=== PATIENT | male | born 1930 | race Two or more races ===

== ENCOUNTER 2020-07-15 01:29 | Inpatient (IN) | payer MEDICARE, OTHER ==
[~2020-07-15] VITALS: Ht 167.6 cm; Wt 84.2 kg
[2020-07-15] VITALS (27 sets, daily range): BP systolic 58–151; BP diastolic 38–117
[~2020-07-15 01:29] MED LIST: AMLO5TAB15 PO; ASPI-543 PO; ATOR20TA50 PO; ENAL2.5T7 PO; FURO1TAB33 PO; INSU70IN3 SC; POTA8TAB2 PO; TAMS0.4C36 PO
[2020-07-15] MEDS ORDERED: methylPREDNISolone SOD SUCC 125 MG/2 ML VL ONE (01:42)
[2020-07-15] MEDS ORDERED: ALBUTEROL SULF 2.5 MG/0.5ML(0.5%) NEB SOLN ONE (01:43)
[2020-07-15] MEDS ORDERED: IPRATROPIUM BROM 0.5 MG/2.5ML INH SOL ONE (01:44)
[2020-07-15] MEDS ORDERED: ALBUTEROL SULF 2.5 MG/0.5ML(0.5%) NEB SOLN NEB ONE (01:45)
[2020-07-15] MEDS ORDERED: methylPREDNISolone SOD SUCC 125 MG/2 ML VL IV ONE (01:45)
[2020-07-15] MEDS ORDERED: IPRATROPIUM BROM 0.5 MG/2.5ML INH SOL NEB ONE (01:45)
[2020-07-15 02:11] LABS: Basophils # (auto) 0.1 10 ^3/uL (0-0.2); Basophils % (auto) 0.6 % (0.0-2.0); Eosinophils # (auto) 0.2 10 ^3/uL (0-0.8); Eosinophils % (auto) 2.2 % (0.0-7.0); Hematocrit 36.7 % (41.0-53.0); Hemoglobin 12.4 g/dL (13.5-17.5); Lymphocytes # (auto) 2.4 10 ^3/uL (0.4-5.4); Lymphocytes % (auto) 24.4 % (10.0-50.0); Mean Corpuscular Hemoglobin 30.6 pg (28.0-32.0); Mean Corpuscular Hgb Conc. 33.7 g/dL (32.0-36.0); Mean Corpuscular Volume 90.8 fL (80.0-100.0); Monocytes # (auto) 0.5 10 ^3/uL (0-1.3); Monocytes % (auto) 5.2 % (0.0-12.0); Neutrophils # (auto) 6.5 10 ^3/uL (1.6-8.6); Neutrophils % (auto) 67.6 % (37.0-80.0); Nucleated Red Blood Cells % 0.1 %; Platelet Count (auto) 173 10^3/uL (140-450); Red Blood Cells 4.04 10^6/uL (4.5-5.90); Red Cell Distribution Width 14.2 % (11.8-14.3); White Blood Cell 9.7 10^3/uL (4.4-10.8)
[2020-07-15 02:28] LABS: Albumin 3.6 g/dL (3.4-5.0); BUN/Creatinine Ratio 15.8; INR 0.95 (0.9-1.15); Partial Thromboplastin Time 24.2 sec (23.0-31.2); Potassium 3.7 mmol/L (3.5-5.1)
[2020-07-15 02:30] LABS: Lactic Acid w/Reflex 2.6 mmol/L (0.4-2.0)
[2020-07-15 02:32] LABS: Bilirubin, Total 0.4 mg/dL (0.2-1.0); Total Protein 6.8 g/dL (6.4-8.2)
[2020-07-15] MEDS ORDERED: METO25TA93 PO (02:37)
[2020-07-15] MEDS ORDERED: MORPHINE SULFATE 4 MG/ML SYR/VIAL IV ONE (02:45)
[2020-07-15] MEDS ORDERED: HEPARIN SODIUM (PORCINE) 5000 UNITS/ML 1ML VIAL IV ONE (02:45)
[2020-07-15] MEDS ORDERED: ONDANSETRON HCL 4 MG/2 ML VIAL IV ONE (02:45)
[2020-07-15] MEDS ORDERED: HEPARIN DRIP/D5W 100UNITS/ML 250 ML IV SCH (02:45)
[2020-07-15] MEDS ORDERED: ASPirin 81 mg TAB PO ONE (02:45)
[2020-07-15] MEDS ORDERED: ATORVASTATIN 20 MG TAB PO ONE (02:45)
[2020-07-15] MEDS ORDERED: NITROGLYCERIN 2% OINT 1GM PKG TD ONE (02:45)
[2020-07-15] MEDS ORDERED: METOPROLOL TARTRATE 25 MG TAB PO ONE (02:45)
[2020-07-15] MEDS ORDERED: HEPARIN SODIUM (PORCINE) 5000 UNITS/ML 1ML VIAL ONE (03:06)
[2020-07-15] MEDS ORDERED: PIO30T PO (06:55)
[2020-07-15] MEDS ORDERED: GLIP5TAB12 PO (06:55)
[2020-07-15] MEDS ORDERED: DEXTROSE (50%) 50ML SYRG IV PRN (07:15)
[2020-07-15] MEDS ORDERED: ONDANSETRON HCL 4 MG/2 ML VIAL IV PRN (07:15)
[2020-07-15] MEDS ORDERED: NITROGLYCERIN 0.4 MG SL TAB SL PRN ×2 (07:15→14:15)
[2020-07-15] MEDS ORDERED: MORPHINE SULF INJ 2 MG/ML SYRINGE 1ML IV PRN (07:15)
[2020-07-15 09:49] LABS: INR 0.99 (0.9-1.15)
[2020-07-15 09:53] LABS: Partial Thromboplastin Time 92.4 sec (23.0-31.2)
[2020-07-15] MEDS: SODIUM CHLORIDE 0.9% 1,000 ML IV SCH (11:45)
[2020-07-15] MEDS ORDERED: PIOG15TA38 PO (11:45)
[2020-07-15] MEDS ORDERED: CHOL20007 PO (11:45)
[2020-07-15] MEDS ORDERED: AMLO-483 PO (11:45)
[2020-07-15] MEDS: PANTOPRAZOLE 40 MG TAB PO SCH (12:02)
[2020-07-15] MEDS: ASPirin 81 mg TAB PO SCH (12:09)
[2020-07-15] MEDS: levoFLOXacin 250MG 50 ML IV SCH (12:09)
[2020-07-15] MEDS ORDERED: FUROSEMIDE 40 MG/4 ML VIAL IV ONE (12:30)
[2020-07-15] MEDS ORDERED: LIDOCAINE 2%HCL (LOCAL ANESTH.) INJ 20ML MDV ONE (13:21)
[2020-07-15] MEDS ORDERED: ANGIOMAX 250 MG VIAL IV ONE (13:21)
[2020-07-15] MEDS ORDERED: SODIUM CHL 0.9% 50 ML ONE (13:21)
[2020-07-15] MEDS ORDERED: FUROSEMIDE 20 MG/2 ML VIAL ONE ×2 (13:21→13:22)
[2020-07-15] MEDS ORDERED: IOHEXOL 350 MG/ML 100ML IJ ONE (13:22)
[2020-07-15] MEDS ORDERED: MIDAZOLAM HCL 1MG/1ML-2 ML VIAL ONE (13:29)
[2020-07-15] MEDS ORDERED: fentaNYL CITRATE 100 MCG/2 ML VL ONE (13:29)
[2020-07-15] MEDS ORDERED: IODIXANOL 320MG/ML 100ML BTL IV ONE (13:39)
[2020-07-15 13:41] LABS: Urine Amorphous Crystal MOD /hpf (None Seen); Urine Bacteria NONE SEEN /hpf (None Seen); Urine Blood 2+ /uL (Negative); Urine Hyaline Cast FEW /lpf (0 - 2); Urine Mucus FEW (None Seen); Urine Specific Gravity 1.022 (1.001-1.035); Urine WBC 2 /hpf (0 - 3)
[2020-07-15] MEDS ORDERED: SODIUM BICARBONATE 8.4 % INJ 50ML VIAL IV ONE ×3 (13:43→17:45)
[2020-07-15] MEDS ORDERED: CLOPIDOGREL 300 MG TAB ONE (14:00)
[2020-07-15] MEDS: NOREPINEPHRINE 8 MG/250ML KIT 250 ML IV SCH (14:15)
[2020-07-15] MEDS ORDERED: NOREPINEPHRINE 8 MG/250ML KIT 250 ML IV ONE (14:24)
[2020-07-15] MEDS: ACCU-CHEK COMFORT CURVE STRIP VI SCH ×3 (14:39→23:47)
--- NOTE | 2020-07-15 14:41 | NUR ---
Respiratory note: CALLED DR NIELSON IN REGARD TO ABG RESULTS. PAGED AND GIVEN RESPIRATORY EXTENSION NUMBER
[2020-07-15] MEDS: InsuLIN REG 1unit/0.01ml Soln (100units/ml) SC SCH ×3 (14:56→23:47)
--- NOTE | 2020-07-15 15:45 | NUR ---
Dr. Vazquez notified re: ABG results, order received to notify hospitalist to manage pt. for probable placement on ventilator. Favio Harvey NP notified, orders received.
[2020-07-15] MEDS: SODIUM BICARBONATE 8.4% INJ 50ML SYRINGE ONE ×2 (16:07→16:13)
--- NOTE | 2020-07-15 17:25 | NUR ---
ICU pt S/P Cardiac Cath Report received from ANEUDY PORTILLO brought to bed 103 following Cardiac catheterization, on bus monitor and portable oxygen. Patient transferred to ICU bed, connected to ICU monitoring and oxygen (BIPAP). Site assessed for any bleeding, redness or swelling. Pedal pulses on affected leg assessed for positive tissue perfusion. Patient instructed on need to notify staff immediately if any pain, burning or wetness to site, and any lower back pain. All questions and concerns addressed, patient verbalized understanding of all education and instruction. See notes for any further. 18G TO RIGHT HAND AND LEFT AC SALINE LOCKED AT THIS TIME. PATIENT DENIES PAIN AT THIS TIME, REPOSITIONED FOR COMFORT
[2020-07-15] MEDS ORDERED: SODIUM BICARBONATE 8.4% INJ 50ML SYRINGE ONE (17:41)
--- NOTE | 2020-07-15 18:30 | NUR ---
SPOKE WITH PATIENTS CHARLENE PROVIDED PASSWORD. ASKED MORE INFORMATION REGARDING PATIENTS HEALTH HISTORY AND UPDATED CHART. ANSWERED CONCERNS
--- NOTE | 2020-07-15 18:55 | NUR ---
SPOKE WITH HOSPITALIST RECEIVED NEW ORDERS AND IMPLEMENTED
--- NOTE | 2020-07-15 19:00 | NUR ---
Opening Shift Note Assumed care of patient, awake and alert. No S/S of distress/SOB or pain. Instructed on POC and to call for assist PRN, will continue to monitor for changes Q1hr and PRN. Patient remains on Bi-pap at this time.
--- NOTE | 2020-07-15 19:30 | NUR ---
BM: Patient placed on a bedpan. Patient had a small BM. Aiyana care provided. Patient tolerated intervention well with no s/s of discomfort or distress.
--- NOTE | 2020-07-15 19:45 | NUR ---
Family: RN received call from family, password verified. Family was updated on patient condition and POC. Family is pleased with medical staff communication and care so far and are very thankful at this time.
[2020-07-15] MEDS: FUROSEMIDE INJECTION 100 MG in SODIUM CHL 0.9% 100 ML IV SCH (20:04)
[2020-07-15] MEDS: DOPamine 1600MCG/ML D5W 250 ML IV SCH (21:15)
--- NOTE | 2020-07-15 21:15 | NUR ---
Dopamine drip: RN started dopamine drip d/t patients blood pressure trending down and MAP falling below 65.
[2020-07-15] MEDS: ATORVASTATIN 20 MG TAB PO SCH (21:19)
[2020-07-16] VITALS (99 sets, daily range): BP systolic 65–132; BP diastolic 51–84
--- NOTE | 2020-07-16 | NUR ---
REPORT RECEIVED REPORT FROM STEPHEN PIZARRO. PATIENT IS AWAKE ALERT AND ORIENTED. FOLLOWS COMMANDS. ON BIPAP 12/5 70% SATURATING 90-94%. EKG SHOWS SR WITH BBB. PATIENT IS ON LASIX DRIP 10 MG/HR , DOPAMINE 2 MCG/KG/MIN AND NS IS ON HOLD. PER RN, IT IS DUE TO CHF AND OLIGURIA. SKIN IS INTACT.
--- NOTE | 2020-07-16 | NUR ---
Report given to JUAREZ Mccann. Care transferred to Siobhan.
[2020-07-16] MEDS: SODIUM CHLORIDE 0.9% 1,000 ML IV SCH (01:05)
--- NOTE | 2020-07-16 04:00 | NUR ---
ASSESSMENT PATIENT STILL ON BIPAP 12/5 AND FIO2 70%. PER PATIENT, HE FEELS BETTER.
[2020-07-16 04:31] LABS: Basophils # (auto) 0 10 ^3/uL (0-0.2); Basophils % (auto) 0.1 % (0.0-2.0); Eosinophils # (auto) 0 10 ^3/uL (0-0.8); Hematocrit 38.4 % (41.0-53.0); Hemoglobin 12.5 g/dL (13.5-17.5); Lymphocytes # (auto) 1.3 10 ^3/uL (0.4-5.4); Lymphocytes % (auto) 9.3 % (10.0-50.0); Mean Corpuscular Hemoglobin 29.8 pg (28.0-32.0); Mean Corpuscular Hgb Conc. 32.6 g/dL (32.0-36.0); Mean Corpuscular Volume 91.3 fL (80.0-100.0); Monocytes # (auto) 0.8 10 ^3/uL (0-1.3); Monocytes % (auto) 5.9 % (0.0-12.0); Neutrophils # (auto) 11.9 10 ^3/uL (1.6-8.6); Neutrophils % (auto) 84.7 % (37.0-80.0); Platelet Count (auto) 164 10^3/uL (140-450); Red Cell Distribution Width 14.7 % (11.8-14.3)
[2020-07-16] MEDS: FUROSEMIDE INJECTION 100 MG in SODIUM CHL 0.9% 100 ML IV SCH ×3 (04:48→18:54)
[2020-07-16 04:52] LABS: INR 1.05 (0.9-1.15); Potassium 4.8 mmol/L (3.5-5.1)
[2020-07-16 05:01] LABS: Albumin 3.1 g/dL (3.4-5.0); BUN/Creatinine Ratio 13.6; Bilirubin, Total 0.5 mg/dL (0.2-1.0); Calcium 8.6 mg/dL (8.5-10.1); Total Protein 6.2 g/dL (6.4-8.2)
--- NOTE | 2020-07-16 06:00 | NUR ---
FAMILY RECEIVED PHONE CALL FROM PATIENT'S GRANDDAUGHTER. PASSWORD CONFIRMED. UPDATES GIVEN. PATIENT TALKED TO AND GRANDDAUGHTER.
[2020-07-16] MEDS: InsuLIN REG 1unit/0.01ml Soln (100units/ml) SC SCH ×3 (06:26→18:00)
[2020-07-16] MEDS: ACCU-CHEK COMFORT CURVE STRIP VI SCH ×3 (06:27→18:00)
[2020-07-16] MEDS: ASPirin 81 mg TAB PO SCH (09:30)
[2020-07-16] MEDS: CLOPIDOGREL BISULFATE 75 MG TAB PO SCH (09:30)
[2020-07-16] MEDS: PANTOPRAZOLE 40 MG TAB PO SCH (09:31)
[2020-07-16] MEDS: levoFLOXacin 250MG 50 ML IV SCH (09:31)
[2020-07-16] MEDS: DOPamine 1600MCG/ML D5W 250 ML IV SCH (09:56)
[2020-07-16] MEDS ORDERED: CLOPIDOGREL BISULFATE 75 MG TAB PO ONE (10:00)
[2020-07-16] MEDS ORDERED: MEROPENEM 500MG IVPB 50 ML IV ONE (10:30)
[2020-07-16] MEDS ORDERED: SODIUM CHL 0.9% 1000 ML BAG XX ONE (11:45)
[2020-07-16] MEDS ORDERED: HEPARIN SODIUM (PORCINE) 5000 UNITS/ML 1ML VIAL ONE (12:14)
[2020-07-16] MEDS: NOREPINEPHRINE 8 MG/250ML KIT 250 ML IV SCH (14:15)
[2020-07-16] MEDS: LINEZOLID 600MG/300ML 300 ML IV SCH (14:19)
--- NOTE | 2020-07-16 14:32 | NUR ---
UPPER AND BOTTOM LACER HAND AT BEDSIDE PT RESTING IN BED. CONNECTED TO BIPAP. NO REPORT OF PAIN FROM PT. EDUCATED AND AWARE OF POC.
[2020-07-16 16:48] LABS: Hepatitis A Ab IgM Negative; Hepatitis B Core IgM Negative; Hepatitis B Surface Antigen Negative (Negative)
[2020-07-16 16:49] LABS: Hepatitis C Antibody Negative (Negative)
[2020-07-16] MEDS: ATORVASTATIN 20 MG TAB PO SCH (22:00)
[2020-07-16] MEDS: MEROPENEM 500MG IVPB 50 ML IV SCH (22:00)
[2020-07-16] MEDS: MORPHINE SULF INJ 2 MG/ML SYRINGE 1ML IV PRN (22:43)
[2020-07-17] VITALS (88 sets, daily range): BP systolic 13–141; BP diastolic 46–86
[2020-07-17] MEDS: LINEZOLID 600MG/300ML 300 ML IV SCH ×2 (01:31→14:16)
[2020-07-17 04:52] LABS: Albumin 2.6 g/dL (3.4-5.0); Calcium 8.8 mg/dL (8.5-10.1); Magnesium 2.2 mg/dL (1.6-2.6); Potassium 4.2 mmol/L (3.5-5.1)
[2020-07-17 04:56] LABS: BUN/Creatinine Ratio 12.5; Bilirubin, Total 0.7 mg/dL (0.2-1.0); Phosphorus 4.7 mg/dL (2.5-4.90); Total Protein 5.9 g/dL (6.4-8.2)
--- NOTE | 2020-07-17 05:43 | NUR ---
UNEVENTFUL SHIFT, IV SITES OOZING DUE TO SIGNIFICANT EDEMA, SEVERAL ATTEMPTS UNSUCCESSFUL,PT IS A VERY DIFFICULT STICK, A SECOND RN ASKED TO ATTEMPT, ONE 22GA PLACED ON LT WRIST.
[2020-07-17] MEDS: ACCU-CHEK COMFORT CURVE STRIP VI SCH ×4 (06:00→17:38)
[2020-07-17] MEDS: DOPamine 1600MCG/ML D5W 250 ML IV SCH ×2 (06:30→06:53)
[2020-07-17] MEDS: FUROSEMIDE INJECTION 100 MG in SODIUM CHL 0.9% 100 ML IV SCH (06:30)
[2020-07-17] MEDS: InsuLIN REG 1unit/0.01ml Soln (100units/ml) SC SCH ×4 (06:40→17:43)
[2020-07-17 07:40] LABS: Basophils # (auto) 0 10 ^3/uL (0-0.2); Basophils % (auto) 0.2 % (0.0-2.0); Eosinophils # (auto) 0 10 ^3/uL (0-0.8); Hematocrit 34.8 % (41.0-53.0); Hemoglobin 11.5 g/dL (13.5-17.5); Lymphocytes # (auto) 0.8 10 ^3/uL (0.4-5.4); Lymphocytes % (auto) 5.2 % (10.0-50.0); Mean Corpuscular Volume 90.9 fL (80.0-100.0); Monocytes # (auto) 0.6 10 ^3/uL (0-1.3); Monocytes % (auto) 4.1 % (0.0-12.0); Neutrophils # (auto) 13.3 10 ^3/uL (1.6-8.6); Neutrophils % (auto) 90.5 % (37.0-80.0); Platelet Count (auto) 143 10^3/uL (140-450); Red Blood Cells 3.83 10^6/uL (4.5-5.90); Red Cell Distribution Width 14.6 % (11.8-14.3); White Blood Cell 14.7 10^3/uL (4.4-10.8)
--- NOTE | 2020-07-17 08:00 | NUR ---
OPEN RECEIVED REPORT FROM NIGHT RN. ASSUMED CARE OF ICU PATIENT, FULL CODE STATUS. PATIENT A & O X4, CALM AND FOLLOWS COMMANDS. NO PAIN AT THIS TIME. PATIENT ON BIPAP AT 80 % FIO2, 09/12. MORE TO GRAVITY. PATIENT NOT HUNGRY AT THIS TIME. RECEIVED ORDERS FROM DR. Juan KILLIAN AT THIS TIME. UPDATED MD ON PT'S CURRENT STATUS AND POC. SEE VISUAL MANAGER AND IV FLOW SHEET FOR FURTHER PATIENT INFORMATION. CONTINUE CARE.
[2020-07-17] MEDS: PANTOPRAZOLE 40 MG TAB PO SCH (08:05)
[2020-07-17] MEDS: ALPRAZolam 0.5 MG TAB PO PRN ×2 (08:05→22:36)
[2020-07-17] MEDS: CLOPIDOGREL BISULFATE 75 MG TAB PO SCH (08:05)
[2020-07-17] MEDS: ASPirin 81 mg TAB PO SCH (08:05)
--- NOTE | 2020-07-17 08:20 | NUR ---
FAMILY CALLED: UPDATE TALKED WITH FAMILY OVER THE PHONE AT THIS TIME. UPDATED THEM ON PT'S CURRENT STATUS, V/S AND LABS FOR TODAY. FAMILY TO CALL BACK LATER ON TODAY. WILL CONTINUE TO MONITOR.
--- NOTE | 2020-07-17 09:35 | NUR ---
PAGED DR. CASILLAS: RESPIRATORY DISTRESS TALKED WITH MD. UPDATED HER ON PT'S CURRENT STATUS, LABS AND CURRENT V/S . ORDERS FOR STAT ABG. FIO2 ON BIPAP INCREASED UP TO 100%, 09/12. R.T. NOTIFIED. WILL CONTINUE TO MONITOR. CURRENT V/S HR 140 ST, BP 133/85. ORDERS GIVEN TO DC DOPAMINE GTT AT THIS TIME. ALSO RECEIVED CALL FROM HD RN. SHE WILL BE HERE WITHIN THE HOUR. WILL CONTINUE CARE.
--- NOTE | 2020-07-17 09:47 | NUR ---
DR. MANCERA AT BEDSIDE: UPDATE UPDATED MD ON PT'S CURRENT STATUS, LABS AND POC FOR TODAY. WILL CONTINUE TO MONITOR, NO NEW ORDERS GIVEN.
[2020-07-17] MEDS: MEROPENEM 500MG IVPB 50 ML IV SCH ×2 (10:00→22:35)
--- NOTE | 2020-07-17 10:10 | NUR ---
HD STARTED AT THIS TIME HD RN AT BEDSIDE. UPDATED ON PT'S STATUS. CURRENT V/S HR 120, RR30, SATS 97%. BP 119/77. WILL CONTINUE TO MONITOR.
--- NOTE | 2020-07-17 10:50 | NUR ---
DR. MOODY AT BEDSIDE: UPDATE MD UPDATED ON PT'S CURRENT STATUS, LABS AND TRENDING V/S FOR TODAY. MD TALKING WITH HD RN AT THIS TIME. HD CONTINUES. WILL CONTINUE TO MONITOR.
[2020-07-17] MEDS: NOREPINEPHRINE 8 MG/250ML KIT 250 ML IV SCH (12:02)
--- NOTE | 2020-07-17 12:45 | NUR ---
DR. CASILLAS AT BEDSIDE: UPDATE MD UPDATED ON PT'S STATUS AT THIS TIME. PATIENT CONTINUES ON HD AT THIS TIME. ORDERS FOR R.T. TO DECREASE FIO2 ON BIPAP TOLERATED. ABG RESULTS GIVEN TO MD. NO NEW ORDERS GIVEN. CONTINUE CARE.
--- NOTE | 2020-07-17 14:29 | NUR ---
OXYGENATION R.T. DECREASED FIO2 ON BIPAP TO 90 % AT THIS TIME. CURRENTLY O2 SATS 95%. WILL CONTINUE TO MONITOR.
--- NOTE | 2020-07-17 14:50 | NUR ---
Midline Placement: Patient educated on need for midline placement. All risks and benefits explained and all questions and concerns addresses prior to procedure. 18g/10cm midline inserted via right basilic vein using Ultrasound. Sterile technique utilized. Blood return obtained from the single lumen and flushed easily with NS using proper technique. Midline secured with saline lock; biodisc and occlusive dressing applied. Primary RN notified. Midline lot # [id number]
--- NOTE | 2020-07-17 15:24 | NUR ---
FAMILY CALLED: UPDATE TALKED WITH PATIENT'S GRANDDAUGHTER AT THIS TIME. UPDATED HER ABOUT PATIENT TOLERATING HD TODAY AND CURRENT STATUS AT THIS TIME. WILL CONTINUE CARE.
--- NOTE | 2020-07-17 20:00 | NUR ---
OPEN ASSUMED CARE OF MALE PT FATIGUED. PT WAKES TO NAME BEING CALLED. A&O X 3. ABLE TO FOLLOW COMMANDS. ABLE TO ASK APPROPRIATE QUESTIONS. PT ON BIPAP MASK 09/12 85% FIO2. SINUS TACH ON RETAIL AIDE WITH BBB. R. IJ H.D. CATH IN PLACE WITH CDI DRESSING. FLACO MIDLINE IN PLACE PATENT WITH CDI DRESSING. 22 G S/L TO L. HAND B&P WITH CDI DRESSING. MORE TO GRAVITY DRAINING CLEAR YELLOW URINE. ANITA LOWER EXT'S WITH PITTING EDEMA 2 +. NO SKIN BREAKDOWN OBSERVED. PILLOWS USED TO OFFLOAD BONY PROMINENCES AND ANITA HEELS. PT DENIES PAIN. BED IN LOWEST LOCKED POSITION. SIDE RAILS UP X 2. CALL BYRD IN REACH. PT IN FULL VIEW OF RN STATION. WILL CONTINUE TO MONITOR.
--- NOTE | 2020-07-17 20:15 | NUR ---
FAMILY CALL PT GRAND DAUGHTER CALLED UNIT FOR UPDATE ON PT CONDITION. AFTER PASSWORD FOR PHONE GIVEN. UPDATE PROVIDED. ALL QUESTIONS AND CONCERNS ADDRESSED. PLAN OF CARE DISCUSSED.
--- NOTE | 2020-07-17 22:00 | NUR ---
PO MEDS/HYDRATION PT ABLE TO TAKE PO MEDS WITH WATER WITH NO S/S OF ASPIRATION. BIPAP MASK RE-SECURED.
[2020-07-17] MEDS: ATORVASTATIN 20 MG TAB PO SCH (22:36)
[2020-07-18] VITALS (33 sets, daily range): BP systolic 96–128; BP diastolic 52–82
--- NOTE | 2020-07-18 | NUR ---
GI/BED BATH LINEN CHANGE PT ABLE TO USE CALL BYRD TO ASK FOR BEDPAN. PT HAD SMALL BROWN BM. PT CLEANED. NEW LINENS PROVIDED. NEW OPTIFOAM GENTLE SACRAL DRESSING APPLIED TO INTACT SKIN PREVENTATIVE. PT GIVEN BED BATH WITH CHLORHEXIDINE WIPES. REPOSITIONED PT WITH PILLOWS USED TO OFFLOAD BONY PROMINENCES AND ANITA HEELS.
[2020-07-18] MEDS: ACCU-CHEK COMFORT CURVE STRIP VI SCH ×4 (00:20→18:19)
--- NOTE | 2020-07-18 00:20 | NUR ---
HYDRATION PT REQUEST WATER. PT ABLE TO DRINK WATER WITH NO S/S OF ASPIRATION. BIPAP MASK RE-SECURED.
[2020-07-18] MEDS: InsuLIN REG 1unit/0.01ml Soln (100units/ml) SC SCH ×4 (00:21→18:21)
--- NOTE | 2020-07-18 01:00 | NUR ---
REST PT SLEEPING. TOLERATING BIPAP. WILL CONTINUE TO MONITOR.
[2020-07-18] MEDS: LINEZOLID 600MG/300ML 300 ML IV SCH (01:56)
[2020-07-18 04:29] LABS: Basophils # (auto) 0 10 ^3/uL (0-0.2); Basophils % (auto) 0.1 % (0.0-2.0); Eosinophils # (auto) 0 10 ^3/uL (0-0.8); Hematocrit 31.1 % (41.0-53.0); Hemoglobin 10.5 g/dL (13.5-17.5); Lymphocytes # (auto) 1.2 10 ^3/uL (0.4-5.4); Mean Corpuscular Hgb Conc. 33.8 g/dL (32.0-36.0); Mean Corpuscular Volume 91.7 fL (80.0-100.0); Monocytes # (auto) 0.5 10 ^3/uL (0-1.3); Neutrophils # (auto) 8.8 10 ^3/uL (1.6-8.6); Neutrophils % (auto) 83.9 % (37.0-80.0); Platelet Count (auto) 98 10^3/uL (140-450); Red Blood Cells 3.39 10^6/uL (4.5-5.90); Red Cell Distribution Width 14.4 % (11.8-14.3); White Blood Cell 10.5 10^3/uL (4.4-10.8)
[2020-07-18 04:49] LABS: Albumin 2.5 g/dL (3.4-5.0); Calcium 8.7 mg/dL (8.5-10.1); Potassium 4.2 mmol/L (3.5-5.1)
[2020-07-18 04:51] LABS: BUN/Creatinine Ratio 11.7
[2020-07-18 05:03] LABS: Total Protein 5.7 g/dL (6.4-8.2)
--- NOTE | 2020-07-18 06:21 | NUR ---
FAMILY CALL PT FAMILY CALLED FOR UPDATE ON PT CONDITION. AFTER PASSWORD FOR PHONE GIVEN. UPDATE PROVIDED.
--- NOTE | 2020-07-18 06:40 | NUR ---
HYDRATION PT USED CALL BYRD TO ASK FOR A DRINK OF WATER. PT ABLE TO DRINK WITH NO S/S OF ASPIRATION. PT PLACED BACK ON BIPAP MASK. CALL BYRD IN REACH.
--- NOTE | 2020-07-18 08:00 | NUR ---
Opening Shift Note Assumed care of patient, awake and alert. No S/S of distress/SOB or pain. See interventions for complete assessment. Bed locked on low position, side rails up x2, bed alarms on at all times, call mejia within reach, instructed on POC and to call for assist PRN, will continue to monitor for changes Q1hr and PRN.
[2020-07-18] MEDS: PANTOPRAZOLE 40 MG TAB PO SCH (09:58)
[2020-07-18] MEDS ORDERED: MEROPENEM 500MG IVPB 50 ML IV SCH (10:00)
--- NOTE | 2020-07-18 10:23 | NUR ---
Nutrition Assessment Est energy needs 7560-0599 kcal (18-20 kcal/kg BW 88kg) Est protein needs 88-106g (1-1.2g/kg BW 88kg r/t VALERIA with HD) Will reassess prn. Addendum: 07/18/20 at [address] Amended: Links added.
[2020-07-18] MEDS: MEROPENEM 500MG IVPB 50 ML IV SCH (11:13)
--- NOTE | 2020-07-18 12:07 | NUR ---
Dr Das at bedside, updated on patient's status. Patient seen and examined. Will carry out new orders.
--- NOTE | 2020-07-18 12:08 | NUR ---
Dr Pratt at bedside, updated on patient's status. Patient seen and examined. Will carry out new orders.
[2020-07-18] MEDS: CLOPIDOGREL BISULFATE 75 MG TAB PO SCH (12:26)
[2020-07-18] MEDS: ASPirin 81 mg TAB PO SCH (12:27)
--- NOTE | 2020-07-18 12:28 | NUR ---
Dr Dugan at bedside, updated on patient's status. Patient seen and examined. Patient's platelet 98, may go ahead and give Aspirin and Plavix per MD. Will carry out new orders.
--- NOTE | 2020-07-18 13:50 | NUR ---
SPOKE WITH THE PATIENTS FAMILY OVER THE PHONE. UPDATED THEM ON PATIENT STATUS AND PLAN OF CARE. TRANSFERRED PHONE CALL TO MOBILE PHONE AND LET FAMILY SPEAK TO PATIENT OVER THE PHONE. Signed: 07/18/20 at 1454 by HERRERA KEARNS <Co-Signature Required> Co-Signed: 07/18/20 at 1454 by Chantelle Gunderson RN
--- NOTE | 2020-07-18 14:00 | NUR ---
Respiratory note: PT SWITCHED TP HFNC. 40LPM AND FI002 55% PT TOLERATING WELL.
--- NOTE | 2020-07-18 14:10 | NUR ---
Patient switch to [place] oxygen 40 LPM, 55% FIO2. Saturation 92% to 94%. Will continue to monitor. Patient eating lunch at this time.
[2020-07-18] MEDS: NOREPINEPHRINE 8 MG/250ML KIT 250 ML IV SCH (14:15)
[2020-07-18] MEDS: DOXYCYCLINE 100MG/250ML 250 ML IV SCH (14:24)
[2020-07-18] MEDS ORDERED: BUMETANIDE 2.5mg/10ml (0.25 mg/ml) INJ IV ONE ×2 (16:45→18:30)
--- NOTE | 2020-07-18 18:33 | NUR ---
RT NOTE PT TOLERATING HFNC AT THIS TIME. PT REQUESTED TO SWITCH TO BIPAP BECAUSE \THEIR NOSE WAS FEELING DRY. RT INCREASED THE HUMIDITY AND ASKED PT TO SEE IF IT FEELS BETTER IN ABOUT 30MINS. RT TOLD PT IF HE STILL WANTED TO GO TO BIPAP HE COULD IN 30MINS IF HIS NOSE DIDN'T FEEL ANY BETTER. RT EXPLAINED THE BENEFIT OF HFNC TO BIPAP. BEING THAT THE PT WILL GET STRONGER WITH LESS SUPPORT FROM THE HFNC.
--- NOTE | 2020-07-18 19:30 | NUR ---
Opening notes Assumed care, awake and oriented with no signs of distress, on high flow nasal cannula, midline access patent and intact, mcclain catheter draining to a light paulo urine, oliguria noted, right IJ bry catheter patent and intact, bed in lowest position with side rails up, bed alarm on. Will continue care.
--- NOTE | 2020-07-18 20:25 | NUR ---
RT NOTE PT PLACED ON BIPAP AT THIS TIME. PT COMPLAINT OF NOSE BEING TOO DRY. PT TOLERATING HFNC WELL OTHER THAN THAT COMPLAINT. PT REQUESTED TO BE PLACED ON BIPAP, RT PLACED PT ON BIPAP AT THIS TIME. RT DID EDUCATE THE PT ON THE BENEFITS OF USING HFNC INSTEAD OF THE BIPAP, PT UNDERSTOOD.
--- NOTE | 2020-07-18 21:12 | NUR ---
Family updated on pt status Family of ANEUDY FISH updated on patient's status and condition over the phone. All questions and concerns addressed. Verbalized understanding.
[2020-07-18] MEDS: ATORVASTATIN 20 MG TAB PO SCH (22:00)
[2020-07-19] VITALS (34 sets, daily range): BP systolic 99–121; BP diastolic 46–80
[2020-07-19] MEDS: InsuLIN REG 1unit/0.01ml Soln (100units/ml) SC SCH ×4 (00:09→17:19)
[2020-07-19] MEDS: ACCU-CHEK COMFORT CURVE STRIP VI SCH ×4 (00:09→17:19)
[2020-07-19] MEDS: DOXYCYCLINE 100MG/250ML 250 ML IV SCH (02:10)
[2020-07-19 04:13] LABS: Basophils # (auto) 0 10 ^3/uL (0-0.2); Basophils % (auto) 0.1 % (0.0-2.0); Eosinophils # (auto) 0 10 ^3/uL (0-0.8); Eosinophils % (auto) 0.1 % (0.0-7.0); Hematocrit 33.8 % (41.0-53.0); Hemoglobin 11.2 g/dL (13.5-17.5); Lymphocytes % (auto) 10.5 % (10.0-50.0); Mean Corpuscular Hemoglobin 30.3 pg (28.0-32.0); Mean Corpuscular Hgb Conc. 33.3 g/dL (32.0-36.0); Mean Corpuscular Volume 91.2 fL (80.0-100.0); Monocytes # (auto) 0.6 10 ^3/uL (0-1.3); Monocytes % (auto) 6.5 % (0.0-12.0); Neutrophils # (auto) 8.3 10 ^3/uL (1.6-8.6); Neutrophils % (auto) 82.8 % (37.0-80.0); Nucleated Red Blood Cells % 0.1 %; Platelet Count (auto) 125 10^3/uL (140-450); Red Cell Distribution Width 14.2 % (11.8-14.3)
[2020-07-19 04:31] LABS: Albumin 2.6 g/dL (3.4-5.0); Potassium 4.1 mmol/L (3.5-5.1)
[2020-07-19 04:35] LABS: Bilirubin, Total 0.9 mg/dL (0.2-1.0); Total Protein 6.1 g/dL (6.4-8.2)
--- NOTE | 2020-07-19 06:10 | NUR ---
Family updated on pt status Family of ANEUDY FISH updated on patient's status and condition. All questions and concerns addressed. verbalized understanding.
--- NOTE | 2020-07-19 06:15 | NUR ---
Paged the hospitalist and spoke with TERRELL Moseley, updated on pt's c/o pain in both hands, gave an order for norco prn. Will carry out an order.
--- NOTE | 2020-07-19 06:30 | NUR ---
norco given as ordered
[2020-07-19] MEDS: HYDROcodone-ACET 5/325MG TAB PO PRN (06:31)
--- NOTE | 2020-07-19 07:30 | NUR ---
ASSESS- PT. LYING IN BED WITH EYES CLOSED, AROUSABLE TO NAME. ALERT AND ORIENTED TIMES FOUR. DENIES ANY PAIN OR DISCOMFORT AT THIS TIME, PREVIOUSLY MED. FOR PAIN. ON BIPAP 12/5 WITH BACK UP RATE OF 12, FIO2-40%. LUNGS CLEAR ANITA. INSPIRATORY AND EXPIRATORY. NO SOB. RR TEENS. ABD. SOFT, ROUND, NON-TENDER. BOWEL SOUNDS ALL FOUR QUADRANTS. NO N/V. F/C TO GRAVITY WITH CLEAR LT. VÍCTOR URINE. RADIAL PULSES STRONG, PALPABLE ANITA. DORSALIS PEDAL PULSES STRONG, PALPABLE ANITA. 2 PLUS EDEMA LE ANITA. ANGIOSEAL RT. GROIN D/I, NO HEMATOMA, NO BRUISING, NO BLEEDING. MAGNUS CATHETER RT. IJ INTACT WITH DSG. D/I. MID-LINE RT. UPPER ARM INTACT.
--- NOTE | 2020-07-19 08:35 | NUR ---
RT CHANGED PT. TO HI FLOW-50 LITERS, 50% FIO2. NO SOB OR SIGNS OF RESP. DISTRESS.
--- NOTE | 2020-07-19 09:45 | NUR ---
SPOKE WITH PT'S. VIA PHONE, HAD PASSWORD. GAVE UPDATE ON PT.
[2020-07-19] MEDS: CLOPIDOGREL BISULFATE 75 MG TAB PO SCH (09:56)
[2020-07-19] MEDS: ASPirin 81 mg TAB PO SCH (09:57)
[2020-07-19] MEDS: PANTOPRAZOLE 40 MG TAB PO SCH (09:57)
[2020-07-19] MEDS: MEROPENEM 500MG IVPB 50 ML IV SCH (09:58)
--- NOTE | 2020-07-19 10:00 | NUR ---
DR. MOODY Provider/Hospitalist at bedside. GAVE UPDATE ON PT.
--- NOTE | 2020-07-19 11:25 | NUR ---
DR. HODGE Provider/Hospitalist at bedside. GAVE UPDATE ON PT. NEW ORDERS RECEIVED.
[2020-07-19] MEDS: NOREPINEPHRINE 8 MG/250ML KIT 250 ML IV SCH (13:22)
--- NOTE | 2020-07-19 14:30 | NUR ---
PT. HAS BEEN RESTING WITH EYES CLOSED. NO SIGNS OF DISTRESS OR DISCOMFORT.
--- NOTE | 2020-07-19 18:15 | NUR ---
PT. WANTED TO EAT DINNER HE STATED. HAD RT CHANGE PT'S. BIPAP TO HI FLOW 45 LITERS, FIO2-50%. NO SOB OR RESP. DISTRESS SEEN.
--- NOTE | 2020-07-19 20:51 | NUR ---
PT IS COMFORTABLE NO C/O, OFFERED BEDPAN, GAS ONLY. AFEBRILE, ON HI FLOW SATTING 94%, NO C/O SOB.
[2020-07-19] MEDS: CARVEDILOL 3.125 MG TAB PO SCH (21:56)
[2020-07-19] MEDS: ATORVASTATIN 20 MG TAB PO SCH (21:57)
[2020-07-20] VITALS (27 sets, daily range): BP systolic 98–135; BP diastolic 54–89
[2020-07-20] MEDS: InsuLIN REG 1unit/0.01ml Soln (100units/ml) SC SCH ×4 (00:15→18:27)
[2020-07-20] MEDS: ACCU-CHEK COMFORT CURVE STRIP VI SCH ×4 (00:18→18:26)
[2020-07-20 04:06] LABS: Basophils # (auto) 0 10 ^3/uL (0-0.2); Basophils % (auto) 0.2 % (0.0-2.0); Eosinophils # (auto) 0 10 ^3/uL (0-0.8); Eosinophils % (auto) 0.3 % (0.0-7.0); Hematocrit 34.5 % (41.0-53.0); Hemoglobin 11.8 g/dL (13.5-17.5); Lymphocytes # (auto) 1.4 10 ^3/uL (0.4-5.4); Mean Corpuscular Hemoglobin 31.2 pg (28.0-32.0); Mean Corpuscular Hgb Conc. 34.1 g/dL (32.0-36.0); Mean Corpuscular Volume 91.6 fL (80.0-100.0); Monocytes # (auto) 0.7 10 ^3/uL (0-1.3); Monocytes % (auto) 7.6 % (0.0-12.0); Neutrophils # (auto) 7.6 10 ^3/uL (1.6-8.6); Neutrophils % (auto) 77.9 % (37.0-80.0); Nucleated Red Blood Cells % 0.1 %; Platelet Count (auto) 124 10^3/uL (140-450); Red Blood Cells 3.77 10^6/uL (4.5-5.90); Red Cell Distribution Width 14.1 % (11.8-14.3); White Blood Cell 9.8 10^3/uL (4.4-10.8)
[2020-07-20 04:54] LABS: Albumin 2.5 g/dL (3.4-5.0); Calcium 8.9 mg/dL (8.5-10.1); Potassium 4.4 mmol/L (3.5-5.1)
[2020-07-20 04:58] LABS: BUN/Creatinine Ratio 18.8; Bilirubin, Total 1.1 mg/dL (0.2-1.0)
--- NOTE | 2020-07-20 07:00 | NUR ---
Opening note Assumed care of patient at this time. Report received from steward/stewardess night RN. POC reviewed, head to toe assessment complete, see intervention spreadsheet for complete details. Received pt alert and oriented x4. Pt able to assist with turns. PT denies pain at this time. VSS. IV site benign. Warner catheter draining to gravity. Call light within reach. Bed locked and in lowest position, safety precautions in place. Will monitor pt carefully. Addendum: 07/20/20 at 1035 by GLORIA DE SANTIAGO RN Received pt with right IJ benito dialysis catheter
--- NOTE | 2020-07-20 08:28 | NUR ---
Dialysis Began at 0821. construction cost estimator at bedside.
--- NOTE | 2020-07-20 09:24 | NUR ---
family Pt's spouse Amirah called for update. PW provided. All questions addressed at this time. Breakfast PT offered breakfast but declined and would like to wait until dialysis is complete.
[2020-07-20 11:54] LABS: Hepatitis A Ab IgM Negative; Hepatitis B Core IgM Negative; Hepatitis B Surface Antigen Negative (Negative); Hepatitis C Antibody Negative (Negative)
--- NOTE | 2020-07-20 12:00 | NUR ---
Dialysis Complete 2.4 lts removed. PT tolerated well. BP after dialysis 120/70.
--- NOTE | 2020-07-20 12:02 | NUR ---
Respiratory note: PT TAKEN OFF OF HFNC 40L, 40% FIO2 POST ABG, AND PLACED ON 4L OXYMIZER 41% FIO2. SPO2 96%, HR 98, RR 23, BS CLEAR/DIMINISHED BILATERALLY. PT TOLERATING CHANGE WELL. RN AWARE. WILL CONTINUE TO MONITOR PT.
[2020-07-20] MEDS: ASPirin 81 mg TAB PO SCH (12:43)
[2020-07-20] MEDS: CLOPIDOGREL BISULFATE 75 MG TAB PO SCH (12:43)
[2020-07-20] MEDS: CARVEDILOL 3.125 MG TAB PO SCH ×2 (12:43→22:04)
[2020-07-20] MEDS: PANTOPRAZOLE 40 MG TAB PO SCH (12:43)
--- NOTE | 2020-07-20 12:48 | NUR ---
at bedside Dr Easley at bedside orders for YARIEL downgrade at this time. Pt on 4lts oxymizer. Pt sitting up in bed eating lunch. No complaints reported at this time.
[2020-07-20] MEDS: NOREPINEPHRINE 8 MG/250ML KIT 250 ML IV SCH (14:15)
[2020-07-20] MEDS: ALPRAZolam 0.5 MG TAB PO PRN (22:05)
[2020-07-20] MEDS: ATORVASTATIN 20 MG TAB PO SCH (22:05)
[2020-07-21] VITALS (13 sets, daily range): BP systolic 97–106; BP diastolic 60–68
[2020-07-21 03:58] LABS: Basophils # (auto) 0 10 ^3/uL (0-0.2); Basophils % (auto) 0.1 % (0.0-2.0); Eosinophils # (auto) 0.1 10 ^3/uL (0-0.8); Eosinophils % (auto) 1.1 % (0.0-7.0); Hematocrit 33.1 % (41.0-53.0); Hemoglobin 11.2 g/dL (13.5-17.5); Lymphocytes # (auto) 1.1 10 ^3/uL (0.4-5.4); Lymphocytes % (auto) 11.9 % (10.0-50.0); Mean Corpuscular Hemoglobin 30.8 pg (28.0-32.0); Mean Corpuscular Hgb Conc. 33.9 g/dL (32.0-36.0); Mean Corpuscular Volume 90.9 fL (80.0-100.0); Monocytes # (auto) 0.7 10 ^3/uL (0-1.3); Monocytes % (auto) 7.6 % (0.0-12.0); Neutrophils # (auto) 7.5 10 ^3/uL (1.6-8.6); Neutrophils % (auto) 79.3 % (37.0-80.0); Platelet Count (auto) 94 10^3/uL (140-450); Red Blood Cells 3.64 10^6/uL (4.5-5.90); Red Cell Distribution Width 13.7 % (11.8-14.3); White Blood Cell 9.5 10^3/uL (4.4-10.8)
[2020-07-21 04:14] LABS: Albumin 2.4 g/dL (3.4-5.0); Calcium 8.5 mg/dL (8.5-10.1); Potassium 4.1 mmol/L (3.5-5.1)
[2020-07-21 04:18] LABS: Bilirubin, Total 1.1 mg/dL (0.2-1.0); Total Protein 5.6 g/dL (6.4-8.2)
[2020-07-21 04:21] LABS: BUN/Creatinine Ratio 19.3
[2020-07-21] MEDS: ACCU-CHEK COMFORT CURVE STRIP VI SCH ×5 (06:00→23:28)
[2020-07-21] MEDS: InsuLIN REG 1unit/0.01ml Soln (100units/ml) SC SCH ×5 (06:29→23:31)
--- NOTE | 2020-07-21 06:40 | NUR ---
Respiratory note: PT ASSESSED HR 81, RR 17, POX 98% ON 4L OXYMIZER, BS ARE CLEAR/DIM. NO SOB OR DISTRESS NOTED.
--- NOTE | 2020-07-21 07:30 | NUR ---
REPORT RECEIVED FROM CERTIFIED LEGAL INVESTIGATOR NURSE. PATIENT RESTING IN BED AT THIS TIME. RESPIRATIONS EVEN AND UNLABORED. NO SIGNS OF ACUTE DISTRESS NOTED. CALL LIGHT IN REACH, BED IN LOW POSITION. WILL CONTINUE TO MONITOR. Addendum: 07/21/20 at 0915 by Indu Hodgson RN PARTIAL LINEN CHANGE COMPLETED.
--- NOTE | 2020-07-21 09:14 | NUR ---
UPDATED FAMILY ON PATIENT STATUS AFTER PASSWORD OBTAINED. ALL QUESTIONS AND CONCERNS ADDRESSED AT THIS TIME. INFORMED OF PATIENT TRANSFER TO ROOM 263 YARIEL.
--- NOTE | 2020-07-21 09:41 | NUR ---
REPORT GIVEN TO KINZA SALDIVAR RN. PATIENT TO GO TO ROOM 263.
[2020-07-21] MEDS: ASPirin 81 mg TAB PO SCH (09:47)
[2020-07-21] MEDS: CLOPIDOGREL BISULFATE 75 MG TAB PO SCH (09:48)
[2020-07-21] MEDS: PANTOPRAZOLE 40 MG TAB PO SCH (09:48)
[2020-07-21] MEDS: CARVEDILOL 3.125 MG TAB PO SCH ×2 (09:49→20:47)
--- NOTE | 2020-07-21 09:55 | NUR ---
PATIENT TRANSFERRED VIA BED CONNECTED TO PORTABLE MONITOR AND OXYGEN. PATIENT IS ALERT AND ORIENTED WITH NO SIGNS OF ACUTE DISTRESS. CHARGE NURSE AND CCT TO TRANSFER PATIENT. PATIENT GOING TO ROOM 263 WITH NURSE ECHOLS.
[2020-07-21] MEDS ORDERED: BUMETANIDE 2.5mg/10ml (0.25 mg/ml) INJ IV ONE (10:00)
--- NOTE | 2020-07-21 10:00 | NUR ---
Transferee to YARIEL from ICU ANEUDY FISH transferred to YARIEL via hospital bed on steamfitter supervisor, and portable 02. Patient connected to unit monitoring and oxygen, on O2 NC 3 LPM, and weighed by bedscale. Patient oriented to SHARAN DE JESUS RN primary RN, unit, room, bed, and unit policies regarding patient care and visiting hours. All questions and concerns addressed, patient verbalized understanding. Bed san provided per patient requested. received a call from families. Password provided, update patient condition at this time.
--- NOTE | 2020-07-21 10:30 | NUR ---
No BM at this time, transferred a call from his to his room.
--- NOTE | 2020-07-21 12:00 | NUR ---
Patient sitting up with high sexton position, Lunch tray provided. Assisted patient with Lunch, patient able to help a little. No N/V or aspiration noted.
--- NOTE | 2020-07-21 12:12 | NUR ---
Dr. Easley at the bedside, patient on O2 NC 3 LPM, O2 saturation 96%. MD will sign off.
--- NOTE | 2020-07-21 12:40 | NUR ---
Nutrition Followup Notes Wt: 90.0 kg Pt was getting tx to floor when rounded this am. per records pt had HD 07/20. pt with no distress noted currently on cardiac diet with inadequate PO of 50% x 4 per RN doc Est energy needs [id number] kcal (18-20 kcal/kg BW 88kg) Est protein needs 88-106g (1-1.2g/kg BW 88kg r/t VALERIA with HD) Will reassess prn. LABS: BUN 92 H CREAT 4.76 H ANITA 1.1 H ALB 2.4 H GLU 181 H GI: Pt has no BM reported per RN doc BS: 16 mod risk. Refer to wound assessment report for full details. PES: Altered nutrition related lab values r.t current chronic medical condition aeb elevated RFTs, hyperglycemia, hypoalb Comments: will continue to monitor PO intake, skin status. F/u high 3-5 days Rec: 1) consider CCHO 60 gm renal std along with current diet. 2) refer to CDE on DC. 3) consider nephro carb steady 1 carton bid if PO is low. 4) continue current plan of care
--- NOTE | 2020-07-21 13:26 | NUR ---
Dr. Dugan at the bedside, seen and examined patient at this time, plan of care discussed with patient. Will continue to monitor and care.
[2020-07-21] MEDS: CHOLECALCIFEROL (VITD3) 2,000 UNIT CAP PO SCH (13:57)
--- NOTE | 2020-07-21 16:00 | NUR ---
Dr. Rae at the bedside.
--- NOTE | 2020-07-21 17:13 | NUR ---
assessment Patient is a 89 year old male who is alert and oriented. Patients cognitive abilities are intact. Prior to admission patient lived home with his Amirah and family and functioned independently per patient. Patient informed me he was able to care for his own ADLs. Per patient he will return home to his prior living arrangements post discharge and family will transport him home. Patient informed me he has a fww for home use. Patient informed me his P[facility] is Dr Allan at the [facility]. I have referred patient to Mika for the aid and assist program through the [facility]. I informed patient of his consult for dialysis chair time. Patient informed me he is aware. Patient is handling his new diagnosis well. Patient informed me he was expecting dialysis. I informed patient I would be working on the chair time and will keep him posted. Patient agreed. Patient will also benefit from home health for safety and PT. I informed patient he has a right to speak to a social worker aide regarding all care. I informed patient he has a right to participate in any and all discharge planning. Patient has a POA and advanced directive. Patient verbalized understanding and agreed to discharge plan. Addendum: 07/21/20 at 1728 by Sugey Reyes Amended: Links added.
--- NOTE | 2020-07-21 17:45 | NUR ---
Partial linen changed, no BM at this time. Perineal care provided. Patient refused Dinner tray, stated that will try Nepro.
[2020-07-21] MEDS: Nepro With Carbsteady ButterPecan 8oz Carton PO SCH (17:50)
--- NOTE | 2020-07-21 19:00 | NUR ---
RECEIVED REPORT FROM NURSE KINZA TO RESUME CARE OF PATIENT
--- NOTE | 2020-07-21 19:30 | NUR ---
Opening Shift Note Assumed care of patient, awake and alert oriented to self but forgetful and confused. Patient conversating but does not make any sense and not appropriate to situation. No S/S of distress/SOB patient on 3LNC or denies any pain or discomfort 0/10. Instructed on POC, dialysis in AM, patient has dialysis catheter to RIJ, midline to FLACO for medications, patient has mcclain draining urine, and to call for assist PRN, will continue to monitor for changes Q1hr and PRN.
[2020-07-21] MEDS: ATORVASTATIN 20 MG TAB PO SCH (20:46)
[2020-07-21] MEDS: ALPRAZolam 0.5 MG TAB PO PRN (20:47)
--- NOTE | 2020-07-21 20:56 | NUR ---
ANXIOUS PATIENT IS ANXIOUS AND RESTLESS IN BED. REPOSITIONED PATIENT TO GET HIM COMFORTABLE. ADMINISTERED XANAX 0.25MG PO PRESCRIBED. PATIENT TOLERATED WELL, WILL CONTINUE TO MONITOR PATIENT.
[2020-07-21] MEDS: HYDROcodone-ACET 5/325MG TAB PO PRN (22:30)
--- NOTE | 2020-07-21 22:31 | NUR ---
COMPLETE LINEN CHANGE AND BED BATH GIVEN
--- NOTE | 2020-07-21 22:47 | NUR ---
PATIENT CONFUSED NEEDS FREQUENT REORIENTATION. PATIENT STATING HE THINKS ITS MORNING. INFORMED PATIEN IT IS ALMOST 11PM AT NIGHT.
[2020-07-22] VITALS (7 sets, daily range): BP systolic 83–106; BP diastolic 48–66
[2020-07-22] MEDS: MORPHINE SULF INJ 2 MG/ML SYRINGE 1ML IV PRN (00:51)
[2020-07-22 03:47] LABS: Basophils # (auto) 0 10 ^3/uL (0-0.2); Basophils % (auto) 0.1 % (0.0-2.0); Eosinophils # (auto) 0.1 10 ^3/uL (0-0.8); Eosinophils % (auto) 0.5 % (0.0-7.0); Hematocrit 34.4 % (41.0-53.0); Hemoglobin 11.2 g/dL (13.5-17.5); Lymphocytes # (auto) 1.5 10 ^3/uL (0.4-5.4); Lymphocytes % (auto) 12.8 % (10.0-50.0); Mean Corpuscular Hemoglobin 30.4 pg (28.0-32.0); Mean Corpuscular Hgb Conc. 32.5 g/dL (32.0-36.0); Mean Corpuscular Volume 93.6 fL (80.0-100.0); Monocytes # (auto) 0.9 10 ^3/uL (0-1.3); Monocytes % (auto) 7.2 % (0.0-12.0); Neutrophils # (auto) 9.5 10 ^3/uL (1.6-8.6); Neutrophils % (auto) 79.4 % (37.0-80.0); Nucleated Red Blood Cells % 0.1 %; Platelet Count (auto) 120 10^3/uL (140-450); Red Blood Cells 3.67 10^6/uL (4.5-5.90); Red Cell Distribution Width 14.3 % (11.8-14.3); White Blood Cell 11.9 10^3/uL (4.4-10.8)
[2020-07-22 04:31] LABS: Potassium 4.5 mmol/L (3.5-5.1)
[2020-07-22 04:36] LABS: BUN/Creatinine Ratio 21.1; Calcium 8.7 mg/dL (8.5-10.1)
[2020-07-22] MEDS: ACCU-CHEK COMFORT CURVE STRIP VI SCH ×3 (06:12→18:20)
[2020-07-22] MEDS: InsuLIN REG 1unit/0.01ml Soln (100units/ml) SC SCH ×3 (06:21→18:20)
--- NOTE | 2020-07-22 07:10 | NUR ---
Respiratory note: PT IS AWAKE, AND ALERT. NO RESPIRATORY DISTRESS NOTED. SPO2 95% ON 4L NC, HR 78, RR 22, BS CLEAR/DIMINISHED BILATERALLY. PRN MEDNEB TX NOT INDICATED AT THIS TIME. PT INFORMED TO PUSH CALL BUTTON IF INCREASED WOB, SOB, OR WHEEZING OCCURS. WILL CONTINUE TO MONITOR PT.
--- NOTE | 2020-07-22 07:30 | NUR ---
REPORT REPORT RECEIVED FROM NIGHT RN. BEDSIDE CHECK DONE. PT RESTING IN BED AND DENIES ANY PAIN OE SOB. CONTINUE TO MONITOR.
--- NOTE | 2020-07-22 07:35 | NUR ---
ASSESSMENT PT AWAKE AND A/O TO NAME , AND IN THE HOSPITAL, ALTHOUGH NOT SURE WHICH ONE. HE THINKS IT IS 1963 AND THAT ALEJANDRO CECILIA IS THE PRESIDENT. MITTENS IN PLACE TO BOTH HANDS. TOOK THEM OFF AND EXPLAINED TO THE PT THAT LONG HE DOESN'T PULL OFF HIS WIRES THAT THEY CAN STAY OFF. IF HE STARTS PULLING THE WIRES OFF AGAIN, I WILL PUT THEM BACK ON. LUNGS CLEAR AND WITH INSPIRATORY CRACKLES IN THE BASES IN THE BASES POSTERIOR. O2 AT 4 L/M VIA NC WITH O2 SAT OF 94%. TELE SR 79 WITH BBB, NOTCHED QRS IN LEADS II AND III. PALPABLE PULSES IN ALL EXTREMITIES WITH NO EDEMA NOTED. ABD SOFT WITH + BOWEL SOUNDS. LAST BM PER REPORT, 07/18. SKIN INTACT. OPTIFOAM IN PLACE TO SKIN FOR PROTECTION TURNED TO HIS LEFT SIDE. RAILS UP X4 AND BED IN LOW POSITION FOR PT SAFETY. CONTINUE TO MONITOR.
--- NOTE | 2020-07-22 07:35 | NUR ---
PT TEACHING' LIMITED BENEFIT FROM PT TEACHING DUE TO PT'S CONFUSION. Addendum: 07/22/20 at 3223 by Yoselyn Schaefer RN Amended: Links added.
[2020-07-22] MEDS: Nepro With Carbsteady ButterPecan 8oz Carton PO SCH ×2 (08:30→18:26)
--- NOTE | 2020-07-22 08:33 | NUR ---
NUTRITION I FED THE PT AND PT TOOK ABOUT 25% OF HIS BREAKFAST.
--- NOTE | 2020-07-22 08:45 | NUR ---
PT PULLING OFF TELE MONITOR AND SO REAPPLIED MITTENS.
--- NOTE | 2020-07-22 09:31 | NUR ---
FAMILY/MEDS RECEIVED A PHONE CALL FROM PT'S . AFTER VERIFYING PASSWORD, I UPDATED HER AND ANSWERED HER QUESTIONS. Addendum: 07/22/20 at 0932 by Yoselyn Schaefer RN HOLDING AM MEDS PT SCHEDULED FOR HDX TODAY.
--- NOTE | 2020-07-22 10:04 | NUR ---
re-assessment Per consult need outpatient chair time. MD order has been sent to [facility]. Per Tsering at [facility] she is checking with patient and for secondary insurance. Addendum: 07/22/20 at 1006 by Sugey LAWSON Amended: Links added.
--- NOTE | 2020-07-22 10:15 | NUR ---
HEMODIALYSIS STARTED BY MELISSA CAST RN. PT'S HDX ACCESS IS TO THE RIGHT IJ. Addendum: 07/22/20 at 1339 by Yoselyn Schaefer RN PT'S BP 88/45.
--- NOTE | 2020-07-22 10:38 | NUR ---
Pt is receiving dialysis, will attempt PT eval later.
[2020-07-22] MEDS ORDERED: ALBUMIN 25% 50 ML IV ONE (10:45)
--- NOTE | 2020-07-22 10:50 | NUR ---
MD VISIT DR MOODY AT THE BEDSIDE AND SPOKE WITH SERENE HDX RN. PT BEING GIVEN ALBUMIN 25% 50ML WITH HDX BP 79/43. CONTINUE TO MONITOR.
--- NOTE | 2020-07-22 13:15 | NUR ---
HDX COMPLETED WITH 1.5 L REMOVED. BP NOW 87/53. REPOSITIONED PT TO HIS RIGHT SIDE. TOO SLEEPY TO SAFELY TRY AND FEED. CONTINUE TO MONITOR.
--- NOTE | 2020-07-22 14:15 | NUR ---
WHILE I WAS AT LUNCH, THE RN WHO WAS COVERING FOR ME, CINTHIA, WAS CONCERNED BECAUSE THE PT WAS SO GROGGY. PT IS S/P HDX. HE DID AN ACCUCHECK WHICH WAS 151. BP 94/61. CONTINUE TO MONITOR.
--- NOTE | 2020-07-22 15:15 | NUR ---
RESPONSIVENESS PT STILL GROGGY BUT DOES RESPOND TO HS NAME BY OPENING HIS EYES. WE REPOSITIONED THE PT TO HIS LEFT SIDE. WHEN DONE INTERACTING WITH THE PT, HE WENT ANNITA.K TO SLEEP. CONTINUE TO MONITOR. Addendum: 07/22/20 at 1534 by Yoselyn Schaefer RN WILL TRY TO ADMINISTER PT'S MEDS WHEN HE IS MORE AWAKE AND ALERT.
--- NOTE | 2020-07-22 18:20 | NUR ---
MORE DISCONTINUED AND TOLERATED WELL BY PT. UOP OF 25 ML BUT PT WAS DIALYZED TODAY WITH 1.5L REMOVED.
[2020-07-22] MEDS: PANTOPRAZOLE 40 MG TAB PO SCH (18:21)
[2020-07-22] MEDS: CHOLECALCIFEROL (VITD3) 2,000 UNIT CAP PO SCH (18:21)
[2020-07-22] MEDS: CLOPIDOGREL BISULFATE 75 MG TAB PO SCH (18:21)
[2020-07-22] MEDS: ASPirin 81 mg TAB PO SCH (18:21)
[2020-07-22] MEDS: CARVEDILOL 3.125 MG TAB PO SCH ×2 (18:26→22:00)
--- NOTE | 2020-07-22 18:30 | NUR ---
FED PT HIS DINNER BUT HE TOOK ONLY ABOUT 10%. GIVEN ALL MEDS HELD EARLIER THIS AM DUE TO HDX, EXCEPT FOR THE COREG WHICH WAS HELD.
--- NOTE | 2020-07-22 19:59 | NUR ---
PT REMAINS ON 3L NC POX 99% HR 78 RR 26 SLEEPING COMFORTABLY. HFNC AND BIPAP AT BEDSIDE.
[2020-07-22] MEDS: ATORVASTATIN 20 MG TAB PO SCH (22:00)
[2020-07-23] VITALS (12 sets, daily range): BP systolic 96–109; BP diastolic 54–98
[2020-07-23] MEDS: InsuLIN REG 1unit/0.01ml Soln (100units/ml) SC SCH ×5 (05:40→23:44)
[2020-07-23] MEDS: ACCU-CHEK COMFORT CURVE STRIP VI SCH ×5 (05:42→23:43)
--- NOTE | 2020-07-23 07:20 | NUR ---
Opening Shift Note Assumed care of patient, patient lying on the bed, woke up by calling his name, patient alert and oriented, able to tell me his name, , place and time right, follow direction, no restless noted. No S/S of distress/SOB or pain. Instructed on POC and to call for assist PRN, will continue to monitor for changes Q1hr and PRN.
--- NOTE | 2020-07-23 07:35 | NUR ---
Mouth care provided. Reposition, and breakfast tray provided. Assisted patient with breakfast.
--- NOTE | 2020-07-23 08:05 | NUR ---
Patient had around 50% of breakfast, no N/V or aspiration noted.
[2020-07-23] MEDS: Nepro With Carbsteady ButterPecan 8oz Carton PO SCH ×2 (08:37→17:17)
[2020-07-23] MEDS: CHOLECALCIFEROL (VITD3) 2,000 UNIT CAP PO SCH (08:40)
[2020-07-23] MEDS: ASPirin 81 mg TAB PO SCH (08:40)
[2020-07-23] MEDS: PANTOPRAZOLE 40 MG TAB PO SCH (08:40)
[2020-07-23] MEDS: CLOPIDOGREL BISULFATE 75 MG TAB PO SCH (08:40)
--- NOTE | 2020-07-23 08:50 | NUR ---
Patient alert and oriented x 4 at this time, consent for Tunneled dialysis catheter insertion signed by patient.
[2020-07-23] MEDS: CARVEDILOL 3.125 MG TAB PO SCH ×2 (10:00→20:00)
--- NOTE | 2020-07-23 10:30 | NUR ---
Dr. Negrete at the bedside. Will keep patient in [facility], will continue to monitor.
--- NOTE | 2020-07-23 10:47 | NUR ---
Dr. Rae at the bedside. Plan HD tomorrow.
--- NOTE | 2020-07-23 10:49 | NUR ---
Received a call from his , password given by his , updated his condition and plan of care. His made aware about plan to have Dialysis catheter insertion for permanent catheter.
--- NOTE | 2020-07-23 10:59 | NUR ---
Hold Coreg due to blood pressure in the low side, SBP 90-93 mmHg. Will continue to monitor and care.
--- NOTE | 2020-07-23 11:41 | NUR ---
Patient asking "Can i have more air?" explained that not enough air, RR 14-16 /min, O2 saturation 97-98%, repositioning , sit up with high sexton position, increased O2 NC 5 LPM, O2 saturation 100%, RR 14-16/min, breathing through his mouth, still awake, watching TV at this time. Will continue to monitor and care.
--- NOTE | 2020-07-23 13:15 | NUR ---
Called Dr. Negrete, informed MD that Dr. Mahoney will be back on Monday. made aware.
--- NOTE | 2020-07-23 14:15 | NUR ---
PT at the bedside. Patient sitting on the chair.
--- NOTE | 2020-07-23 15:20 | NUR ---
Called his to update that possible will have procedure for Tunneled dialysis catheter insertion on Monday. Patient still sitting on the chair, tolerated well. RR 16-22/min, O2 saturation 100% with O2 NC 5 LPM. No complaining of SOB noted.
--- NOTE | 2020-07-23 15:48 | NUR ---
re-assessment Per Tsering from [facility] dialysis they are working on patients financial's. Patient will have a 20% copay with [facility]. [facility] Per Tsering she states patients dialysis is acute. I will have case loader operator Jennifer speak with and look at chart for clarification. Addendum: 07/23/20 at 1552 by Sugey LAWSON Amended: Links added.
--- NOTE | 2020-07-23 16:33 | NUR ---
Patient went back to bed.
--- NOTE | 2020-07-23 17:54 | NUR ---
Dinner tray provided, patient stated that still would like to take a nap at this time, will keep the tray for later.
--- NOTE | 2020-07-23 19:20 | NUR ---
RECEIVED REPORT FROM NURSE KINZA TO RESUME CARE OF PATIENT.
--- NOTE | 2020-07-23 19:46 | NUR ---
DR NIELSON CONFIRMED WITH DR NIELSON PATIENT IS SCHEDULED FOR BIV AICD PLACEMENT TOMORROW 07/24/2020 @ 1300 AND TO KEEP PATIENT NPO AFTER BREAKFAST. TORBO.
[2020-07-23] MEDS: ATORVASTATIN 20 MG TAB PO SCH (22:00)
[2020-07-24] VITALS (18 sets, daily range): BP systolic 96–116; BP diastolic 52–71
--- NOTE | 2020-07-24 03:06 | NUR ---
ASSISTED PATIENT UP IN CHAIR PER HIS REQUEST. COMPLETE LINEN CHANGE
[2020-07-24 03:25] LABS: Basophils # (auto) 0 10 ^3/uL (0-0.2); Basophils % (auto) 0.1 % (0.0-2.0); Eosinophils # (auto) 0.2 10 ^3/uL (0-0.8); Hematocrit 35.5 % (41.0-53.0); Hemoglobin 11.3 g/dL (13.5-17.5); Lymphocytes # (auto) 1.9 10 ^3/uL (0.4-5.4); Lymphocytes % (auto) 16.7 % (10.0-50.0); Mean Corpuscular Volume 93.8 fL (80.0-100.0); Monocytes # (auto) 0.9 10 ^3/uL (0-1.3); Monocytes % (auto) 8.1 % (0.0-12.0); Neutrophils # (auto) 8.2 10 ^3/uL (1.6-8.6); Neutrophils % (auto) 73.1 % (37.0-80.0); Nucleated Red Blood Cells % 0.6 %; Platelet Count (auto) 142 10^3/uL (140-450); Red Blood Cells 3.78 10^6/uL (4.5-5.90); Red Cell Distribution Width 14.3 % (11.8-14.3); White Blood Cell 11.3 10^3/uL (4.4-10.8)
[2020-07-24 03:39] LABS: INR 1.09 (0.9-1.15)
[2020-07-24 03:42] LABS: Albumin 2.9 g/dL (3.4-5.0); Calcium 9.1 mg/dL (8.5-10.1); Potassium 4.5 mmol/L (3.5-5.1)
[2020-07-24 03:46] LABS: BUN/Creatinine Ratio 21.7; Bilirubin, Total 0.8 mg/dL (0.2-1.0); Total Protein 6.3 g/dL (6.4-8.2)
--- NOTE | 2020-07-24 05:04 | NUR ---
DIALYSIS NURSE CALLED STATES SHE IS ON HER WAY. HD ORDERS ARE IN. PLACED PATIENT BACK T0 BED. CHG BATH GIVEN.
--- NOTE | 2020-07-24 05:34 | NUR ---
DIALYSIS NURSE DIALYSIS NURSE AT BEDSIDE FOR HEMODIALYSIS
[2020-07-24] MEDS: CLOPIDOGREL BISULFATE 75 MG TAB PO SCH (05:46)
[2020-07-24] MEDS: ACCU-CHEK COMFORT CURVE STRIP VI SCH ×4 (05:57→23:51)
[2020-07-24] MEDS: InsuLIN REG 1unit/0.01ml Soln (100units/ml) SC SCH ×4 (06:01→23:56)
--- NOTE | 2020-07-24 07:30 | NUR ---
DIALYSIS FINISHED 1025ML REMOVED AT THIS TIME.
[2020-07-24] MEDS: Nepro With Carbsteady ButterPecan 8oz Carton PO SCH ×2 (08:55→18:05)
[2020-07-24] MEDS: CARVEDILOL 3.125 MG TAB PO SCH ×2 (09:11→19:57)
[2020-07-24] MEDS: ASPirin 81 mg TAB PO SCH (09:11)
[2020-07-24] MEDS: CHOLECALCIFEROL (VITD3) 2,000 UNIT CAP PO SCH (09:12)
[2020-07-24] MEDS: PANTOPRAZOLE 40 MG TAB PO SCH (09:12)
--- NOTE | 2020-07-24 11:11 | NUR ---
Hold PT today, pt is having AICD placement.
--- NOTE | 2020-07-24 11:21 | NUR ---
Received a call from the Iza the granddaughter asking if we were trying to get the patient's dialysis set up for when he goes home, express to her that I had just spoke to Sugey KAY and she stated she was working on getting chair time for the patient.
--- NOTE | 2020-07-24 12:30 | NUR ---
PATIENT TAKEN TO EXPLOSIVE EXPERT FOR PACEMAKER PLACEMENT.
[2020-07-24] MEDS ORDERED: LIDOCAINE 2%HCL (LOCAL ANESTH.) INJ 20ML MDV ONE (12:45)
[2020-07-24] MEDS ORDERED: IOHEXOL 350 MG/ML 100ML IJ ONE (12:46)
--- NOTE | 2020-07-24 12:59 | NUR ---
Nutrition Followup Notes Wt: 85.3 kg Pt was sleeping when rounded this am. Pt is on a Cardiac diet with inadequate PO of 44% x 6 meals per RN doc. Refer to dietary recommendations noted below under Comments. Est energy needs 8534-6248 kcal (18-20 kcal/kg BW 88kg) Est protein needs 88-106g (1-1.2g/kg BW 88kg r/t VALERIA with HD) Will reassess prn. LABS: BUN 134 H CREAT 6.18 H ALB 2.9 H GLU 220 H GI: Pt is incontinent per RN doc BS: 19 low risk. Refer to wound assessment report for full details. PES: Altered nutrition related lab values r.t current chronic medical condition aeb elevated RFTs, hyperglycemia, hypoalb Comments: Will continue to monitor PO intake, skin status. F/u high 3-5 days Rec: 1) consider CCHO 60 gm renal std along with current diet. 2) refer to CDE on DC. 3) consider nephro carb steady 1 carton bid if PO is low. 4) continue current plan of care
[2020-07-24] MEDS ORDERED: VANCOMYCIN HCL 1000 MG VL ONE (13:48)
[2020-07-24] MEDS ORDERED: VANCOMYCIN 1GM/250ML 250 ML IV ONE (13:49)
[2020-07-24] MEDS ORDERED: MIDAZOLAM HCL 1MG/1ML-2 ML VIAL ONE (13:49)
[2020-07-24] MEDS ORDERED: fentaNYL CITRATE 100 MCG/2 ML VL ONE (13:49)
[2020-07-24] MEDS ORDERED: FUROSEMIDE 20 MG/2 ML VIAL ONE ×2 (15:10→15:17)
--- NOTE | 2020-07-24 15:17 | NUR ---
re-assessment Per Tsering at [facility] she needs nephrology notes stating patient is chronic dialysis. Dr Lambert notes have been sent. Patients Amirah is still refusing to pay the 20% they are responsible for. I will refer patient to Lance Mondragon of [facility] for Medical. Addendum: 07/24/20 at 1519 by Sugey LAWSON Amended: Links added.
[2020-07-24] MEDS: ceFAZolin 1GM/50ML 50 ML IV SCH ×3 (15:45→23:35)
--- NOTE | 2020-07-24 16:02 | NUR ---
PATIENT RETURNED FROM WORSHIP PASTOR. AICD PLACED TO LEFT UPPER CHEST. ICE PACK AND SAFEGUARD TO INCISION SITE. AIR FROM SAFEGUARD SUPPOSED TO BE REMOVED TOMORROW IN THE AM ACCORDING TO LOPEZ PIZARRO WORSHIP PASTOR NURSE. PATIENT RESTING COMFORTABLY AT THIS TIME. CALL LIGHT IN REACH.
--- NOTE | 2020-07-24 16:47 | NUR ---
re-assessment Constantin Reyes to start new services at [facility] on 07/27/2020 Per Tsering at [facility] dialysis. Patient appointment times are 6:15 pm on Monday, Monday and Monday. Patient bedside nurse Zuleika was notified on 07/24/2020 about services starting on 07/27/2020 for Mr. Reyes. Per Tsering (cleaning specialist), patient must arrive at 5:30 pm on his first day to have time to sign in and to fill out paper work. Patient must bring a government ID, valid insurance card, all prescribed medications, a blanket, earphones for TV, and can bring cell phone. Patient is not allow to bring food or drinks as this is the protocol due to the COVID -19 pandemic. Only the patient is allow into the facility for treatment, per Tsering, Mr. Reyes can come into the facility on this coming Monday07/27/2020 to help her on filling out paper work and bringing in all documents and medicine Addendum: 07/24/20 at 1652 by Sugey LAWSON Amended: Links added.
--- NOTE | 2020-07-24 16:49 | NUR ---
re-assessment Per Maribeth PIZARRO patient needs a new catheter for dialysis and it will not be done until Monday. We will try to cancel first appointment for dialysis. Addendum: 07/24/20 at 1652 by Sugey LAWSON Amended: Links added.
[2020-07-24] MEDS: HYDROcodone-ACET 5/325MG TAB PO PRN (16:58)
[2020-07-24] MEDS ORDERED: CATHFLO ACTIVASE (ALTEPLASE) 2 MG VIAL IV ONE (17:15)
--- NOTE | 2020-07-24 19:20 | NUR ---
RECEIVED REPORT FROM NURSE LYNN TO RESUME CARE OF PATIENT.
--- NOTE | 2020-07-24 19:45 | NUR ---
Opening Shift Note Assumed care of patient, awake and alert. Patient S/P BiV AICD placement to Left upper chest, dressing intact ice pack over surgical site with arm sling to left arm. instructed patient not to over extend his left arm since he just had surgery the wires need to time to adhere to the muscle and moving his arm could potentially risk the leads becoming displaced. No S/S of distress/SOB or pain or any discomfort. Instructed on POC and to call for assistance PRN, will continue to monitor for changes Q1hr and PRN.
[2020-07-24] MEDS: VANCOMYCIN 1GM/250ML 250 ML IV SCH (21:00)
[2020-07-24] MEDS: ATORVASTATIN 20 MG TAB PO SCH (21:00)
[2020-07-25] VITALS: BP 119/67
[2020-07-25 04:00] VITALS: BP 113/66
[2020-07-25 04:08] LABS: Alanine Aminotransferase 33 U/L (16-61); Albumin 2.6 g/dL (3.4-5.0); Anion Gap 15 (5-15); Aspartate Aminotransferase 43 U/L (15-37); BUN/Creatinine Ratio 21.9; Calcium 8.8 mg/dL (8.5-10.1); Carbon Dioxide 22 mmol/L (21-32); Chloride 98 mmol/L (98-107); GFR African American 12 mL/min; GFR Non-African American 10 mL/min; Glucose 219 mg/dL (74-106); Potassium 4.8 mmol/L (3.5-5.1); Sodium 135 mmol/L (136-145)
[2020-07-25 04:11] LABS: Alkaline Phosphatase 127 U/L (45-117); Bilirubin, Total 0.7 mg/dL (0.2-1.0); Total Protein 5.7 g/dL (6.4-8.2)
[2020-07-25 04:36] LABS: Blood Urea Nitrogen 126 mg/dL (7-18)
--- NOTE | 2020-07-25 05:30 | NUR ---
PATIENT HAS ORDERS FOR DIALYSIS, DIALYSIS NURSE AT BEDSIDE Addendum: 07/25/20 at 0646 by NIA MAYERS RN RN dialysis nurse having trouble with catheter spoke with Dr Painter
[2020-07-25] MEDS: InsuLIN REG 1unit/0.01ml Soln (100units/ml) SC SCH ×3 (05:38→17:28)
[2020-07-25] MEDS: ACCU-CHEK COMFORT CURVE STRIP VI SCH ×3 (05:40→17:27)
[2020-07-25] MEDS ORDERED: CATHFLO ACTIVASE (ALTEPLASE) 2 MG VIAL IV ONE (06:45)
[2020-07-25 06:46] LABS: Basophils # (auto) 0 10 ^3/uL (0-0.2); Basophils % (auto) 0.1 % (0.0-2.0); Eosinophils # (auto) 0.1 10 ^3/uL (0-0.8); Eosinophils % (auto) 0.9 % (0.0-7.0); Hematocrit 29.1 % (41.0-53.0); Hemoglobin 9.6 g/dL (13.5-17.5); Lymphocytes # (auto) 1.8 10 ^3/uL (0.4-5.4); Lymphocytes % (auto) 13.6 % (10.0-50.0); Mean Corpuscular Hemoglobin 30.4 pg (28.0-32.0); Mean Corpuscular Hgb Conc. 32.9 g/dL (32.0-36.0); Mean Corpuscular Volume 92.4 fL (80.0-100.0); Monocytes # (auto) 0.9 10 ^3/uL (0-1.3); Monocytes % (auto) 6.7 % (0.0-12.0); Neutrophils # (auto) 10.1 10 ^3/uL (1.6-8.6); Neutrophils % (auto) 78.7 % (37.0-80.0); Nucleated Red Blood Cells % 0.1 %; Platelet Count (auto) 102 10^3/uL (140-450); Red Blood Cells 3.15 10^6/uL (4.5-5.90); Red Cell Distribution Width 14.4 % (11.8-14.3); White Blood Cell 12.9 10^3/uL (4.4-10.8)
[2020-07-25] MEDS: ceFAZolin 1GM/50ML 50 ML IV SCH (07:45)
[2020-07-25 08:00] VITALS: BP 113/63
[2020-07-25] MEDS: Nepro With Carbsteady ButterPecan 8oz Carton PO SCH ×2 (08:00→17:27)
[2020-07-25] MEDS: VANCOMYCIN 1GM/250ML 250 ML IV SCH (09:14)
[2020-07-25] MEDS: ASPirin 81 mg TAB PO SCH (09:14)
[2020-07-25] MEDS: CARVEDILOL 3.125 MG TAB PO SCH ×2 (09:14→22:00)
[2020-07-25] MEDS: CLOPIDOGREL BISULFATE 75 MG TAB PO SCH (09:15)
[2020-07-25] MEDS: CHOLECALCIFEROL (VITD3) 2,000 UNIT CAP PO SCH (09:15)
[2020-07-25] MEDS ORDERED: LACTULOSE 20Gm/30ML SOLN PO PRN (09:15)
[2020-07-25] MEDS: PANTOPRAZOLE 40 MG TAB PO SCH (09:15)
[2020-07-25 11:54] VITALS: BP 102/63
[2020-07-25] MEDS: HYDROcodone-ACET 5/325MG TAB PO PRN ×3 (12:11→22:32)
[2020-07-25] MEDS: FUROSEMIDE 40 MG/4 ML VIAL IV SCH (12:11)
[2020-07-25 15:52] VITALS: BP 101/54
[2020-07-25 20:00] VITALS: BP 92/56
[2020-07-25] MEDS: ATORVASTATIN 20 MG TAB PO SCH (22:31)
[2020-07-26] VITALS: BP 98/68
[2020-07-26 04:00] VITALS: BP 101/57
[2020-07-26 04:25] LABS: Basophils # (auto) 0 10 ^3/uL (0-0.2); Basophils % (auto) 0.3 % (0.0-2.0); Eosinophils # (auto) 0.2 10 ^3/uL (0-0.8); Eosinophils % (auto) 1.9 % (0.0-7.0); Hematocrit 27.5 % (41.0-53.0); Hemoglobin 8.7 g/dL (13.5-17.5); Lymphocytes # (auto) 1.4 10 ^3/uL (0.4-5.4); Lymphocytes % (auto) 11.2 % (10.0-50.0); Mean Corpuscular Hemoglobin 29.4 pg (28.0-32.0); Mean Corpuscular Hgb Conc. 31.7 g/dL (32.0-36.0); Mean Corpuscular Volume 92.7 fL (80.0-100.0); Monocytes # (auto) 0.7 10 ^3/uL (0-1.3); Neutrophils # (auto) 9.8 10 ^3/uL (1.6-8.6); Neutrophils % (auto) 80.6 % (37.0-80.0); Nucleated Red Blood Cells % 0.1 %; Platelet Count (auto) 91 10^3/uL (140-450); Red Blood Cells 2.96 10^6/uL (4.5-5.90); White Blood Cell 12.1 10^3/uL (4.4-10.8)
[2020-07-26 04:40] LABS: Potassium 4.4 mmol/L (3.5-5.1)
[2020-07-26 04:49] LABS: Albumin 2.5 g/dL (3.4-5.0); BUN/Creatinine Ratio 24.5; Bilirubin, Total 0.5 mg/dL (0.2-1.0); Calcium 8.4 mg/dL (8.5-10.1); Total Protein 5.4 g/dL (6.4-8.2)
[2020-07-26] MEDS: InsuLIN REG 1unit/0.01ml Soln (100units/ml) SC SCH ×4 (07:49→17:52)
[2020-07-26] MEDS: ACCU-CHEK COMFORT CURVE STRIP VI SCH ×4 (07:57→18:00)
[2020-07-26 08:00] VITALS: BP 108/59
[2020-07-26] MEDS: Nepro With Carbsteady ButterPecan 8oz Carton PO SCH ×2 (08:00→18:00)
[2020-07-26] MEDS: CLOPIDOGREL BISULFATE 75 MG TAB PO SCH (09:42)
[2020-07-26] MEDS: CHOLECALCIFEROL (VITD3) 2,000 UNIT CAP PO SCH (09:42)
[2020-07-26] MEDS: CARVEDILOL 3.125 MG TAB PO SCH ×2 (09:42→22:00)
[2020-07-26] MEDS: cefTRIAXone 1GM/50ML D5W 50 ML IV SCH (09:43)
[2020-07-26] MEDS: PANTOPRAZOLE 40 MG TAB PO SCH (09:43)
[2020-07-26] MEDS: ASPirin 81 mg TAB PO SCH (09:43)
[2020-07-26] MEDS: FUROSEMIDE 40 MG/4 ML VIAL IV SCH (09:43)
[2020-07-26] MEDS: AZITHROMYCIN 500MG/ 250ML 250 ML IV SCH (09:44)
[2020-07-26 12:00] VITALS: BP 105/59
[2020-07-26 15:31] VITALS: BP 98/58
[2020-07-26 20:00] VITALS: BP 104/62
[2020-07-26] MEDS: ATORVASTATIN 20 MG TAB PO SCH (23:18)
[2020-07-27] VITALS (9 sets, daily range): BP systolic 89–112; BP diastolic 49–69
--- NOTE | 2020-07-27 | NUR ---
Pt NPO for procedure tomorrow. Stable at this time but very forgetful.
[2020-07-27] MEDS: HYDROcodone-ACET 5/325MG TAB PO PRN (03:48)
--- NOTE | 2020-07-27 03:48 | NUR ---
Pt stating abd discomfort and upper chest/shoulder pain. Dupont given. Pt seems restless.
[2020-07-27 04:39] LABS: Basophils # (auto) 0.1 10 ^3/uL (0-0.2); Basophils % (auto) 0.4 % (0.0-2.0); Eosinophils # (auto) 0.3 10 ^3/uL (0-0.8); Eosinophils % (auto) 2.5 % (0.0-7.0); Hematocrit 27.8 % (41.0-53.0); Hemoglobin 8.9 g/dL (13.5-17.5); Lymphocytes # (auto) 1.4 10 ^3/uL (0.4-5.4); Lymphocytes % (auto) 10.2 % (10.0-50.0); Mean Corpuscular Hemoglobin 29.9 pg (28.0-32.0); Mean Corpuscular Hgb Conc. 32.1 g/dL (32.0-36.0); Mean Corpuscular Volume 93.3 fL (80.0-100.0); Monocytes # (auto) 0.8 10 ^3/uL (0-1.3); Monocytes % (auto) 5.9 % (0.0-12.0); Neutrophils # (auto) 10.9 10 ^3/uL (1.6-8.6); Nucleated Red Blood Cells % 0.2 %; Platelet Count (auto) 111 10^3/uL (140-450); Red Blood Cells 2.98 10^6/uL (4.5-5.90); White Blood Cell 13.4 10^3/uL (4.4-10.8)
--- NOTE | 2020-07-27 04:48 | NUR ---
Pt a bit more restful now. Will continue to monitor.
[2020-07-27 05:01] LABS: Potassium 4.1 mmol/L (3.5-5.1)
[2020-07-27 05:09] LABS: Albumin 2.6 g/dL (3.4-5.0); BUN/Creatinine Ratio 26.3; Bilirubin, Total 0.6 mg/dL (0.2-1.0); Calcium 8.4 mg/dL (8.5-10.1); Total Protein 5.6 g/dL (6.4-8.2)
[2020-07-27] MEDS: InsuLIN REG 1unit/0.01ml Soln (100units/ml) SC SCH ×4 (06:00→17:52)
[2020-07-27] MEDS: MORPHINE SULF INJ 2 MG/ML SYRINGE 1ML IV PRN (06:12)
[2020-07-27] MEDS: ACCU-CHEK COMFORT CURVE STRIP VI SCH ×4 (06:16→17:52)
--- NOTE | 2020-07-27 06:32 | NUR ---
Pt very restless. States he is having pain in his chest like as if he ate too much the night before but also states it is like anxiety pain and it is going up now into his chest. EKG performed, morphine given. During EKG set up, it was noted on mindray monitor that HR dropped into the 30's for just a couple of beats. Will try to print event. It may be possible that pt is feeling the AICD shocking him and is unaware of what that feels like. Will call MD to inform. Pt is much more restful at this time. Will continue to monitor.
[2020-07-27] MEDS ORDERED: SODIUM CHL 0.9% 1000 ML BAG XX ONE (07:00)
--- NOTE | 2020-07-27 07:45 | NUR ---
OPENING SHIFT NOTE Received report from NOC RNChristen. Assumed care of patient. Received patient lying in bed, connected to bedside monitor with alarms in place. Patient is A&Ox4, denies pain and has no s/s of distress noted. Patient is NPO for tunnelled HD catheter placement today with Dr Mahoney and then for dialysis post procedure. Patient with right upper arm midline in place and is patent and intact. Patient voiding via urinal with minimal assistance. Bed in lowest position, rails x3 up and call light within reach. Updated on plan of care. Will continue to monitor.
[2020-07-27] MEDS: Nepro With Carbsteady ButterPecan 8oz Carton PO SCH ×2 (08:00→17:52)
--- NOTE | 2020-07-27 08:16 | NUR ---
Pt resting comfortably. No S/S of distress. Report given to AM shift, care endorsed. NPO since MN for procedure today. Did not cover glucose of 178 due to NPO and no time of procedure.
[2020-07-27] MEDS: cefTRIAXone 1GM/50ML D5W 50 ML IV SCH (09:00)
--- NOTE | 2020-07-27 09:00 | NUR ---
PHYSICAL THERAPY Cynthia, PT at bedside working with patient.
--- NOTE | 2020-07-27 09:00 | NUR ---
FAMILY T/C from patient's , Amirah. Password verified. Updated on patient status and plan of care. All questions addressed at this time.
[2020-07-27] MEDS: ASPirin 81 mg TAB PO SCH (10:00)
[2020-07-27] MEDS: CARVEDILOL 3.125 MG TAB PO SCH ×2 (10:00→22:44)
[2020-07-27] MEDS: PANTOPRAZOLE 40 MG TAB PO SCH (10:00)
[2020-07-27] MEDS: CLOPIDOGREL BISULFATE 75 MG TAB PO SCH (10:00)
[2020-07-27] MEDS: FUROSEMIDE 40 MG/4 ML VIAL IV SCH (10:00)
[2020-07-27] MEDS: AZITHROMYCIN 500MG/ 250ML 250 ML IV SCH (10:00)
[2020-07-27] MEDS: CHOLECALCIFEROL (VITD3) 2,000 UNIT CAP PO SCH (10:00)
--- NOTE | 2020-07-27 11:25 | NUR ---
PHYSICAL THERAPY Patient returned to bed after sitting up in chair for over an hour.
--- NOTE | 2020-07-27 11:40 | NUR ---
MD Dr Viridiana Negrete to see patient.
--- NOTE | 2020-07-27 12:46 | NUR ---
Patient taken to cathlab for dialysis catheter placement. Consents signed.
[2020-07-27] MEDS ORDERED: LIDOCAINE 2%HCL (LOCAL ANESTH.) INJ 20ML MDV ONE (12:53)
[2020-07-27] MEDS ORDERED: HEPARIN SODIUM (PORCINE) 5000 UNITS/ML 1ML VIAL ONE (13:03)
[2020-07-27] MEDS ORDERED: fentaNYL CITRATE 100 MCG/2 ML VL ONE (13:04)
[2020-07-27] MEDS ORDERED: MIDAZOLAM HCL 1MG/1ML-2 ML VIAL ONE (13:04)
--- NOTE | 2020-07-27 13:40 | NUR ---
PT TO DEPUTY PROBATION OFFICER ROOM 2. PT TRANSFER TO TABLE AND PLACED ON MONITOR WITHOUT INCIDENT. Addendum: 07/27/20 at 1342 by TERESA ACOSTA RN RN TIME [id number]
--- NOTE | 2020-07-27 13:57 | NUR ---
PROCEDURE COMPLETE. PT TOLERATED WELL. PT PLACED ON TRANSPORT MONITOR AND TAKEN TO ROOM 263 WITHOUT INCIDENT.
--- NOTE | 2020-07-27 14:17 | NUR ---
Patient returned from slab off mill tender s/p tunnelled catheter placement to right subclavian. Dressing C/D/I. Patient resting comfortably. No s/s of distress noted.
--- NOTE | 2020-07-27 14:42 | NUR ---
Nutrition Followup Notes Wt: 85.9 kg Pt was sitting up in a chair sleeping when rounded this am. Pt is currently NPO d/t pt scheduled for a HD treatment per RN. Recommended a Renal Standard diet to RN to discuss with MD. Est energy needs 5852-1006 kcal (18-20 kcal/kg BW 88kg) Est protein needs 88-106g (1-1.2g/kg BW 88kg r/t VALERIA with HD) Will reassess prn. LABS: BUN 152 H CREAT 5.78 H ALB 2.6 H GLU 178 H GI: Pt had 1 BM on 07/18 per RN doc BS: 19 low risk. Refer to wound assessment report for full details. PES: Altered nutrition related lab values r.t current chronic medical condition aeb elevated RFTs, hyperglycemia, hypoalb Comments: Will continue to monitor PO intake, skin status. F/u high 3-5 days Rec: 1) Consider CCHO 60 gm renal std along with current diet. 2) Refer to CDE on DC. 3) Consider nephro carb steady 1 carton bid if PO is low. 4) Continue current plan of care
--- NOTE | 2020-07-27 17:30 | NUR ---
DIALYSIS Called [facility] in regards to when dialysis nurse was going to start treatment. Per clinics record, Yasmin PIZARRO to do treatment. Clinic staff to message RN to call unit to give ETA.
--- NOTE | 2020-07-27 19:03 | NUR ---
END OF SHIFT NOTE Patient resting in bed awaiting dialysis treatment. Per acute care occupational therapistAguilar, he will be on unit around [id number] to start treatment. Patient remains A&Ox4 with no s/s of distress noted. Report to be given to NOC Fabien PIZARRO.
--- NOTE | 2020-07-27 19:07 | NUR ---
Report received from JUAREZ Reynaga. Will continue with POC; and, will continue to monitor VS & clinical status.
--- NOTE | 2020-07-27 19:18 | NUR ---
HD RN at bedside.
--- NOTE | 2020-07-27 19:40 | NUR ---
STEVEN Doshi called for transfer notification Room 218-B. Patient currently receiving HD and will transfer patient after HD completion.
--- NOTE | 2020-07-27 20:05 | NUR ---
Central Line dressing changed to Perma-Cath site.
--- NOTE | 2020-07-27 20:10 | NUR ---
Dr. Montanez rounded on patient.
[2020-07-27] MEDS ORDERED: EPOETIN ALFA 10,000 UNIT/1 ML VIAL SC ONE (21:00)
--- NOTE | 2020-07-27 22:30 | NUR ---
HD ended. 2500 ml removed.
[2020-07-27] MEDS: ATORVASTATIN 20 MG TAB PO SCH (22:44)
--- NOTE | 2020-07-27 22:44 | NUR ---
Patient medicated with Epogen 10,000 units SQ, Lipitor 20mg PO and Coreg 3.125 mg PO.
--- NOTE | 2020-07-27 22:52 | NUR ---
Report called to Sonam Archer.
--- NOTE | 2020-07-27 23:16 | NUR ---
Transfer from [facility] Patient arrived to [facility] via stretcher. Patient oriented to RN, room, bed, unit, policies and call light. Patient verbalized understanding. Patient's VSS. No signs and symptoms of distress noted. Safety measures maintained by keeping the bed locked in lowest position, 2 side rails up, personal items and call light within reach. Will continue to monitor Q1H and PRN.
[2020-07-28] MEDS: ACCU-CHEK COMFORT CURVE STRIP VI SCH ×4 (00:24→17:51)
[2020-07-28] MEDS: InsuLIN REG 1unit/0.01ml Soln (100units/ml) SC SCH ×4 (00:28→17:56)
[2020-07-28 06:03] VITALS: BP 119/63
[2020-07-28] MEDS: Nepro With Carbsteady ButterPecan 8oz Carton PO SCH ×2 (08:00→18:00)
[2020-07-28 09:00] VITALS: BP 95/55
[2020-07-28] MEDS: PANTOPRAZOLE 40 MG TAB PO SCH (10:17)
[2020-07-28] MEDS: FUROSEMIDE 40 MG/4 ML VIAL IV SCH (10:18)
[2020-07-28] MEDS: CLOPIDOGREL BISULFATE 75 MG TAB PO SCH (10:18)
[2020-07-28] MEDS: ASPirin 81 mg TAB PO SCH (10:18)
[2020-07-28] MEDS: cefTRIAXone 1GM/50ML D5W 50 ML IV SCH (10:19)
[2020-07-28] MEDS: CARVEDILOL 3.125 MG TAB PO SCH (10:20)
--- NOTE | 2020-07-28 10:41 | NUR ---
Left message for Windmill Mechanic Sugey Reyes Regarding social service consultations and discharge.
[2020-07-28 11:24] LABS: Basophils # (auto) 0 10 ^3/uL (0-0.2); Basophils % (auto) 0.2 % (0.0-2.0); Eosinophils # (auto) 0.2 10 ^3/uL (0-0.8); Eosinophils % (auto) 1.2 % (0.0-7.0); Hematocrit 27.4 % (41.0-53.0); Lymphocytes % (auto) 7.6 % (10.0-50.0); Mean Corpuscular Hemoglobin 30.5 pg (28.0-32.0); Mean Corpuscular Hgb Conc. 32.7 g/dL (32.0-36.0); Mean Corpuscular Volume 93.2 fL (80.0-100.0); Monocytes # (auto) 0.8 10 ^3/uL (0-1.3); Monocytes % (auto) 6.2 % (0.0-12.0); Neutrophils # (auto) 10.7 10 ^3/uL (1.6-8.6); Neutrophils % (auto) 84.8 % (37.0-80.0); Nucleated Red Blood Cells % 0.2 %; Platelet Count (auto) 115 10^3/uL (140-450); Red Blood Cells 2.94 10^6/uL (4.5-5.90); Red Cell Distribution Width 14.8 % (11.8-14.3); White Blood Cell 12.6 10^3/uL (4.4-10.8)
[2020-07-28] MEDS: AZITHROMYCIN 500MG/ 250ML 250 ML IV SCH (11:28)
[2020-07-28 11:56] LABS: Albumin 2.6 g/dL (3.4-5.0); Calcium 8.5 mg/dL (8.5-10.1); Potassium 4.2 mmol/L (3.5-5.1)
[2020-07-28 12:00] LABS: BUN/Creatinine Ratio 21.7; Bilirubin, Total 0.8 mg/dL (0.2-1.0); Total Protein 5.7 g/dL (6.4-8.2)
[2020-07-28 13:00] VITALS: BP 90/37
--- NOTE | 2020-07-28 13:30 | NUR ---
Spoke to Dr. Negrete regarding COVID exposure Orders received, read back and verified. Sample collected and sent.
--- NOTE | 2020-07-28 15:30 | NUR ---
Spoke to Sugey Reyes She informed me that the consultation for home health and dialysis has been taken care of and she will put a note before the end of the shift. Will await social service note for discharge planning.
[2020-07-28 17:00] VITALS: BP 96/52
--- NOTE | 2020-07-28 19:45 | NUR ---
Opening Shift Note Assumed care of patient, awake and alert. Patient laying in bed. No S/S of distress/SOB or pain. Safety measures maintained by keeping the bed locked in lowest position, 2 side rails up, personal items and call light within reach. Bed alarm in place. Instructed on POC and to call for assist PRN, will continue to monitor for changes Q1hr and PRN.
[2020-07-28] MEDS: ATORVASTATIN 20 MG TAB PO SCH (21:32)
[2020-07-28 22:14] VITALS: BP 135/66
[2020-07-29] MEDS: ACCU-CHEK COMFORT CURVE STRIP VI SCH ×3 (00:10→12:20)
[2020-07-29] MEDS: InsuLIN REG 1unit/0.01ml Soln (100units/ml) SC SCH ×3 (00:12→12:28)
[2020-07-29 06:04] VITALS: BP 90/55
[2020-07-29] MEDS: Nepro With Carbsteady ButterPecan 8oz Carton PO SCH (08:00)
--- NOTE | 2020-07-29 08:20 | NUR ---
senior electrical design engineer at bedside to start dialysis.
--- NOTE | 2020-07-29 08:20 | NUR ---
Opening Note Assumed care of patient, he is A & O x4, no s/s of distress. Patient is weak, has sling to the left arm s/p AICD placement, bed alarm is on. consulting services project manager is at bedside to begin dialysis. Will continue to monitor Q1h and PRN.
--- NOTE | 2020-07-29 08:30 | NUR ---
Called the [place] clinic [phone], spoke with Reuben and stated they needed the medical records for the patient, faxed the medical records as requested [phone].
--- NOTE | 2020-07-29 08:30 | NUR ---
Dr. Negrete at bedside. Informed Dr. Negrete of patient low blood pressure, 90/55, HR 72. No further orders at this time.
--- NOTE | 2020-07-29 08:52 | NUR ---
Updated Family regarding discharge today. Called Sedrick Reyes, notified regarding discharge today. They are aware and want to make sure he can get up on his own and if he can walk. Will consult with physical therapy today.
[2020-07-29 09:00] VITALS: BP 109/61
--- NOTE | 2020-07-29 09:30 | NUR ---
Called the [facility] to see if they received the clinical packet, Reuben stated she would check I wanted for 15 minutes but she never came back to the phone.
[2020-07-29] MEDS ORDERED: CHOLECALCIFEROL (VITD3) 1,000UNIT=25mCg TAB PO SCH (10:00)
[2020-07-29] MEDS: ASPirin 81 mg TAB PO SCH (10:58)
[2020-07-29] MEDS: cefTRIAXone 1GM/50ML D5W 50 ML IV SCH ×2 (10:59→12:20)
[2020-07-29] MEDS: CLOPIDOGREL BISULFATE 75 MG TAB PO SCH (10:59)
[2020-07-29] MEDS: PANTOPRAZOLE 40 MG TAB PO SCH (10:59)
--- NOTE | 2020-07-29 11:03 | NUR ---
Called [facility] [phone] and spoke with Lucinda stated she had [facility]ed clinical[facility] to [facility] this morning and was waiting for a call back express to her that I had called and spoke to them this morning and had faxed clinicals also, and had called back but they were not taking calls for an I hour they were in a meeting., Stated I would continue to call them to an answer about the authorization for the dialysis and she stated she would do the same.
--- NOTE | 2020-07-29 11:27 | NUR ---
re-assessment Per consult [facility] for physical therapy, home safety eval and medication management. I spoke with patients granddaughter Iza and per Iza she is requesting who Dr Negrete suggested [place]. order has been sent to [facility]. Per Tatyana at [place] service will start 24 to 48 hours from discharge. Addendum: 07/29/20 at 1130 by Sugey Reyes Amended: Links added.
--- NOTE | 2020-07-29 12:00 | NUR ---
Dialysis Complete Per division director, 2L removed, BP 99/61, HR 78 post dialysis. Patient tolerated well. Will continue to monitor.
[2020-07-29 13:00] VITALS: BP 103/61
[2020-07-29] MEDS: AZITHROMYCIN 500MG/ 250ML 250 ML IV SCH (13:12)
--- NOTE | 2020-07-29 13:50 | NUR ---
Called [facility] and spoke with Lucinda stated she has not heard back from the [facility] and i express to her neither have I, stated she is trying to call Tsering who was is handing the case yesterday and see if he could still have the dialysis done, because the [facility] is always slow with giving the authorizations, and they have let patient have dialysis before the authorization was given , stated she would call me back after she had an answer.
--- NOTE | 2020-07-29 14:25 | NUR ---
Called the [facility] spoke with Praveena states she had not sent the clinicals to the nurse yet to review that the [facility] will kick in after the Medicare runs out, stated they will request Community Care at that time that is why they needed the records for the patient. States she would place and urgent request for the patient. stated she had discussed this with Tsering at [facility] on Monday.
--- NOTE | 2020-07-29 14:40 | NUR ---
Called Lucinda at [facility] states she had spoke to Tsering and was more aware of the situation. States the patient can have Dialysis starting on Monday, the family will have to pay a fee until the Community Care request is processed, stated the patients Daughter Rhonda can call Too COLBY for [facility] [phone] and he will explain it to her better.
--- NOTE | 2020-07-29 14:50 | NUR ---
Called Rhonda gunn daughter [phone] and express to her that she needs to call Too COLBY at [facility] and he will explain the fee and how the insurance will work stated she would. I requested her to call me back or have Too COLBY call me after they decided what they were going to do, gave call back information.
--- NOTE | 2020-07-29 15:25 | NUR ---
Received a call from Rhonda the patients daughter stated she had spoke with Savanah at [facility] dialysis and his chair time was set up for Monday and the she is aware that she has to pay the co pay. Spoke with Savanah at [facility] and stated the chair time is set up for Monday and every thing was worked out regarding the copay.
[2020-07-29 16:43] VITALS: BP 95/55
[2020-07-29 16:54] VITALS: BP 90/48
--- NOTE | 2020-07-29 18:00 | NUR ---
Rechecked Patient BP BP 95/48, HR 76, this has been patient baseline. Patient asymptomatic of low blood pressure. Will discharge at this time.
--- NOTE | 2020-07-29 18:24 | NUR ---
Discharge instructions given as ordered. Encourage to follow up with PMD as instructed. All questions and concerns addressed. Patient verbalized understanding. Medication reconciliation form completed and copy given to patient. New prescriptions including Plavix were in patient possession at time of discharge. Patient summary faxed to Dr. Vazquez's office. IV removed with catheter intact, pressure dressing applied. Telemetry unit returned to ICU. Patient taken to vehicle via wheelchair with all personal belongings, accompanied by staff and family member. No distress noted at time of departure.
== END 2020-07-29 18:50 | disposition home health service (06) | DRG 853 ==
LOC: EDBD 01:29 → EDUNIT# 01:29 → ER 01:33 → TELE 01:34 → ICU WEST 17:21 → DOU IN ICU 07-21 10:11 → TELE-CENTR 07-27 23:17
PROVIDERS: ADMIT Nurse Practitioner; ATTEND Family Medicine
PROC: B211YZZ Fluoroscopy of Multiple Coronary Arteries using Other Contrast (ICD-10-PCS; principal; 2020-07-15)
PROC: 02713ZZ Dilation of Coronary Artery, Two Arteries, Percutaneous Approach (ICD-10-PCS; 2020-07-15)
PROC: 4A023N7 Measurement of Cardiac Sampling and Pressure, Left Heart, Percutaneous Approach (ICD-10-PCS; 2020-07-15)
PROC: 5A1D70Z Performance of Urinary Filtration, Intermittent, Less than 6 Hours Per Day (ICD-10-PCS; 2020-07-16)
PROC: 5A1D70Z Performance of Urinary Filtration, Intermittent, Less than 6 Hours Per Day (ICD-10-PCS; 2020-07-20)
PROC: 5A1D70Z Performance of Urinary Filtration, Intermittent, Less than 6 Hours Per Day (ICD-10-PCS; 2020-07-22)
PROC: 0JH608Z Insertion of Defibrillator Generator into Chest Subcutaneous Tissue and Fascia, Open Approach (ICD-10-PCS; 2020-07-24)
PROC: 02HL3KZ Insertion of Defibrillator Lead into Left Ventricle, Percutaneous Approach (ICD-10-PCS; 2020-07-24)
PROC: 5A1D70Z Performance of Urinary Filtration, Intermittent, Less than 6 Hours Per Day (ICD-10-PCS; 2020-07-24)
PROC: 02HK3KZ Insertion of Defibrillator Lead into Right Ventricle, Percutaneous Approach (ICD-10-PCS; 2020-07-24)
PROC: 0JH63XZ Insertion of Tunneled Vascular Access Device into Chest Subcutaneous Tissue and Fascia, Percutaneous Approach (ICD-10-PCS; 2020-07-27)
PROC: 02H633Z Insertion of Infusion Device into Right Atrium, Percutaneous Approach (ICD-10-PCS; 2020-07-27)
PROC: B5181ZA Fluoroscopy of Superior Vena Cava using Low Osmolar Contrast, Guidance (ICD-10-PCS; 2020-07-27)
DX: A41.9 Sepsis, unspecified organism (principal); J96.01 Acute respiratory failure with hypoxia; N17.0 Acute kidney failure with tubular necrosis; I50.43 Acute on chronic combined systolic (congestive) and diastolic (congestive) heart failure; I21.3 ST elevation (STEMI) myocardial infarction of unspecified site; E43 Unspecified severe protein-calorie malnutrition; N18.6 End stage renal disease; J18.9 Pneumonia, unspecified organism; I47.2 Ventricular tachycardia; I13.2 Hypertensive heart and chronic kidney disease with heart failure and with stage 5 chronic kidney disease, or end stage renal disease; M31.9 Necrotizing vasculopathy, unspecified; D69.6 Thrombocytopenia, unspecified; E11.22 Type 2 diabetes mellitus with diabetic chronic kidney disease; E11.40 Type 2 diabetes mellitus with diabetic neuropathy, unspecified; I95.9 Hypotension, unspecified; E11.21 Type 2 diabetes mellitus with diabetic nephropathy; E78.5 Hyperlipidemia, unspecified; E11.65 Type 2 diabetes mellitus with hyperglycemia; I45.10 Unspecified right bundle-branch block; R94.5 Abnormal results of liver function studies; T50.1X5A Adverse effect of loop [high-ceiling] diuretics, initial encounter; E78.00 Pure hypercholesterolemia, unspecified; Z20.828 Contact with and (suspected) exposure to other viral communicable diseases; Z79.4 Long term (current) use of insulin; Z68.30 Body mass index [BMI] 30.0-30.9, adult; Z99.2 Dependence on renal dialysis; Z83.3 Family history of diabetes mellitus; Z82.49 Family history of ischemic heart disease and other diseases of the circulatory system; Z82.3 Family history of stroke; Z79.899 Other long term (current) drug therapy; Z79.82 Long term (current) use of aspirin; Z79.01 Long term (current) use of anticoagulants; Z95.818 Presence of other cardiac implants and grafts
CPT/HCPCS: 36415; 36600; 71045; 76705; 76942; 80048; 80053; 80061; 80074; 81001; 82306; 82728; 82805; 82962; 83036; 83605; 83735; 83880; 84100; 84484; 85025; 85379; 85610; 85730; 86141; 87040; 87081; 87426; 90935; 93005; 93306; 94003; 94640; 94660; 96374; 96375; 97116; 97163; 97530; 99152; 99153; G0378; J0690; J0696; J0885; J1642; J1815; J2185; J2250; J2405; J3490; Q9967

== ENCOUNTER → 2020-08-07 | Outpatient (CLI) | payer MEDICARE ==
[~2020-08-07] MED LIST changes: +AMLO-483 PO; -AMLO5TAB15 PO; -ASPI-543 PO; -ATOR20TA50 PO; +CHOL20007 PO; -ENAL2.5T7 PO; -FURO1TAB33 PO; +GLIP5TAB12 PO; -INSU70IN3 SC; +METO25TA93 PO; +PIOG15TA38 PO; -POTA8TAB2 PO; -TAMS0.4C36 PO
== END | disposition home or self-care (01) ==
LOC: Rad HDHVI 10:03
PROVIDERS: ATTEND Internal Medicine Cardiovascular Disease
DX: I23.7 Postinfarction angina (principal); I21.4 Non-ST elevation (NSTEMI) myocardial infarction
CPT/HCPCS: 93306

== ENCOUNTER → 2020-08-13 | Outpatient (CLI) | payer MEDICARE, OTHER ==
[~2020-08-13] VITALS: Ht 170.2 cm; Wt 83.9 kg
[~2020-08-13] MED LIST changes: +ADENOSINE 70 MG in GIVE UN-DILUTED 0 ML IV ONE; +ADENOSINE 90 MG/30 ML INJ IV ONE
== END | disposition home or self-care (01) ==
LOC: Rad HDHVI 12:56
PROVIDERS: ATTEND Internal Medicine Cardiovascular Disease
DX: I10 Essential (primary) hypertension (principal); E78.5 Hyperlipidemia, unspecified; R00.2 Palpitations; R06.02 Shortness of breath; R07.89 Other chest pain; Z82.49 Family history of ischemic heart disease and other diseases of the circulatory system
CPT/HCPCS: 78452; 93005; 96374; 96375; A9500; J0153

== ENCOUNTER → 2020-08-18 | Outpatient (CLI) | payer MEDICARE, OTHER ==
[2020-08-18] VITALS (9 sets, daily range): BP systolic 97–124; BP diastolic 46–69
[~2020-08-18] MED LIST changes: -ADENOSINE 70 MG in GIVE UN-DILUTED 0 ML IV ONE; -ADENOSINE 90 MG/30 ML INJ IV ONE; +BACITRACIN TOP OINT 1 UD PKG TOP ONE; +CYANOCOBALAMIN (B-12) 1000 MCG/1 ML VIAL IM ONE; +CYANOCOBALAMIN (B-12) 1000 MCG/1 ML VIAL ONE; +DOBUTamine 1000MCG/ML 250 ML IV ONE; +FUROSEMIDE 40 MG/4 ML VIAL IV ONE; +FUROSEMIDE 40 MG/4 ML VIAL ONE; +POTASSIUM CHL 10 Meq TABLET PO ONE; +POTASSIUM CHL 20 Meq TABLET PO ONE
[2020-08-18 10:48] LABS: Basophils # (auto) 0.1 10 ^3/uL (0-0.2); Eosinophils # (auto) 0 10 ^3/uL (0-0.8); Monocytes # (auto) 0.4 10 ^3/uL (0-1.3); Neutrophils # (auto) 4.1 10 ^3/uL (1.6-8.6)
[2020-08-18 10:50] LABS: Basophils % (auto) 1.2 % (0.0-2.0); Eosinophils % (auto) 0.8 % (0.0-7.0); Hematocrit 31.3 % (41.0-53.0); Lymphocytes # (auto) 0.8 10 ^3/uL (0.4-5.4); Lymphocytes % (auto) 14.2 % (10.0-50.0); Mean Corpuscular Hemoglobin 31.1 pg (28.0-32.0); Mean Corpuscular Hgb Conc. 31.9 g/dL (32.0-36.0); Mean Corpuscular Volume 97.5 fL (80.0-100.0); Neutrophils % (auto) 75.8 % (37.0-80.0); Nucleated Red Blood Cells % 0.1 %; Platelet Count (auto) 51 10^3/uL (140-450); Red Blood Cells 3.21 10^6/uL (4.5-5.90); Red Cell Distribution Width 18.1 % (11.8-14.3); White Blood Cell 5.4 10^3/uL (4.4-10.8)
[2020-08-18 10:58] LABS: Albumin 2.9 g/dL (3.4-5.0); Calcium 9.1 mg/dL (8.5-10.1); Magnesium 2.6 mg/dL (1.6-2.6); Potassium 3.5 mmol/L (3.5-5.1)
[2020-08-18 11:01] LABS: BUN/Creatinine Ratio 5.8; Bilirubin, Total 0.9 mg/dL (0.2-1.0)
== END | disposition home or self-care (01) ==
LOC: Rad HDHVI 09:56
PROVIDERS: ATTEND Internal Medicine Cardiovascular Disease
DX: I13.2 Hypertensive heart and chronic kidney disease with heart failure and with stage 5 chronic kidney disease, or end stage renal disease (principal); E11.22 Type 2 diabetes mellitus with diabetic chronic kidney disease; I50.23 Acute on chronic systolic (congestive) heart failure; N18.6 End stage renal disease; R06.02 Shortness of breath; E11.40 Type 2 diabetes mellitus with diabetic neuropathy, unspecified; E78.5 Hyperlipidemia, unspecified; I25.10 Atherosclerotic heart disease of native coronary artery without angina pectoris; I25.2 Old myocardial infarction; Z79.82 Long term (current) use of aspirin; Z79.4 Long term (current) use of insulin; Z79.899 Other long term (current) drug therapy; Z99.2 Dependence on renal dialysis; Z79.891 Long term (current) use of opiate analgesic; Z95.810 Presence of automatic (implantable) cardiac defibrillator; Z79.01 Long term (current) use of anticoagulants
CPT/HCPCS: 36415; 71046; 80053; 82607; 83735; 83880; 84403; 84443; 85025; 93005; 96365; 96366; 96372; 96375; G0463; J1250; J1940; J3420

== ENCOUNTER → 2020-08-20 | Outpatient (CLI) | payer MEDICARE, OTHER ==
[2020-08-20] VITALS (10 sets, daily range): BP systolic 97–111; BP diastolic 51–77
[~2020-08-20] VITALS: Ht 167.6 cm; Wt 79.0 kg
[~2020-08-20] MED LIST changes: +ALBUTEROL SULF 2.5 MG/0.5ML(0.5%) NEB SOLN NEB ONE; +ALBUTEROL SULF 2.5 MG/0.5ML(0.5%) NEB SOLN ONE; -BACITRACIN TOP OINT 1 UD PKG TOP ONE; -CYANOCOBALAMIN (B-12) 1000 MCG/1 ML VIAL IM ONE; -CYANOCOBALAMIN (B-12) 1000 MCG/1 ML VIAL ONE; -FUROSEMIDE 40 MG/4 ML VIAL IV ONE; -FUROSEMIDE 40 MG/4 ML VIAL ONE; -POTASSIUM CHL 10 Meq TABLET PO ONE; -POTASSIUM CHL 20 Meq TABLET PO ONE; +TESTOSTERONE CYPIONATE 200 MG/ML 1ML VIAL IM ONE
[2020-08-20 12:26] LABS: Potassium 3.8 mmol/L (3.5-5.1)
== END | disposition home or self-care (01) ==
LOC: CHF HDHVI 10:24
PROVIDERS: ATTEND Internal Medicine Cardiovascular Disease
DX: I13.2 Hypertensive heart and chronic kidney disease with heart failure and with stage 5 chronic kidney disease, or end stage renal disease (principal); E11.22 Type 2 diabetes mellitus with diabetic chronic kidney disease; N18.6 End stage renal disease; I50.23 Acute on chronic systolic (congestive) heart failure; R53.83 Other fatigue; R06.02 Shortness of breath; E29.1 Testicular hypofunction; I25.2 Old myocardial infarction; I45.10 Unspecified right bundle-branch block; E11.21 Type 2 diabetes mellitus with diabetic nephropathy; E11.40 Type 2 diabetes mellitus with diabetic neuropathy, unspecified; E43 Unspecified severe protein-calorie malnutrition; Z79.82 Long term (current) use of aspirin; Z79.4 Long term (current) use of insulin; Z79.899 Other long term (current) drug therapy; Z79.01 Long term (current) use of anticoagulants; Z95.5 Presence of coronary angioplasty implant and graft; Z99.2 Dependence on renal dialysis
CPT/HCPCS: 36415; 71046; 82565; 83880; 84132; 84520; 87070; 87205; 94640; 96365; 96366; 96372; G0463; J1071; J1250

== ENCOUNTER → 2020-08-25 | Outpatient (CLI) | payer MEDICARE, OTHER ==
[2020-08-25] VITALS (11 sets, daily range): BP systolic 90–102; BP diastolic 42–51
[~2020-08-25] MED LIST changes: -ALBUTEROL SULF 2.5 MG/0.5ML(0.5%) NEB SOLN NEB ONE; -ALBUTEROL SULF 2.5 MG/0.5ML(0.5%) NEB SOLN ONE; +CYANOCOBALAMIN (B-12) 1000 MCG/1 ML VIAL IM ONE; +CYANOCOBALAMIN (B-12) 1000 MCG/1 ML VIAL ONE; -TESTOSTERONE CYPIONATE 200 MG/ML 1ML VIAL IM ONE
[2020-08-25 12:36] LABS: Basophils # (auto) 0 10 ^3/uL (0-0.2); Basophils % (auto) 0.7 % (0.0-2.0); Eosinophils # (auto) 0 10 ^3/uL (0-0.8); Eosinophils % (auto) 0.6 % (0.0-7.0); Hemoglobin 10.3 g/dL (13.5-17.5); Lymphocytes # (auto) 0.4 10 ^3/uL (0.4-5.4); Lymphocytes % (auto) 8.3 % (10.0-50.0); Mean Corpuscular Hemoglobin 30.8 pg (28.0-32.0); Mean Corpuscular Hgb Conc. 31.3 g/dL (32.0-36.0); Mean Corpuscular Volume 98.4 fL (80.0-100.0); Monocytes # (auto) 0.5 10 ^3/uL (0-1.3); Monocytes % (auto) 9.5 % (0.0-12.0); Neutrophils % (auto) 80.9 % (37.0-80.0); Nucleated Red Blood Cells % 0.6 %; Platelet Count (auto) 72 10^3/uL (140-450); Red Blood Cells 3.35 10^6/uL (4.5-5.90); Red Cell Distribution Width 18.8 % (11.8-14.3); White Blood Cell 4.9 10^3/uL (4.4-10.8)
[2020-08-25 12:47] LABS: BUN/Creatinine Ratio 6.6; Calcium 8.6 mg/dL (8.5-10.1); Potassium 3.9 mmol/L (3.5-5.1)
== END | disposition home or self-care (01) ==
LOC: CHF HDHVI 09:14
PROVIDERS: ATTEND Internal Medicine Cardiovascular Disease
DX: I13.2 Hypertensive heart and chronic kidney disease with heart failure and with stage 5 chronic kidney disease, or end stage renal disease (principal); E11.22 Type 2 diabetes mellitus with diabetic chronic kidney disease; N18.6 End stage renal disease; I50.23 Acute on chronic systolic (congestive) heart failure; I25.10 Atherosclerotic heart disease of native coronary artery without angina pectoris; I45.10 Unspecified right bundle-branch block; I25.2 Old myocardial infarction; I42.8 Other cardiomyopathies; R00.0 Tachycardia, unspecified; E11.21 Type 2 diabetes mellitus with diabetic nephropathy; E43 Unspecified severe protein-calorie malnutrition; E78.5 Hyperlipidemia, unspecified; E78.00 Pure hypercholesterolemia, unspecified; E11.65 Type 2 diabetes mellitus with hyperglycemia; Z79.01 Long term (current) use of anticoagulants; Z79.82 Long term (current) use of aspirin; Z79.4 Long term (current) use of insulin; Z79.899 Other long term (current) drug therapy; Z99.2 Dependence on renal dialysis; Z95.5 Presence of coronary angioplasty implant and graft
CPT/HCPCS: 36415; 80048; 83880; 85025; 93005; 96365; 96366; 96372; G0463; J1250; J3420

== ENCOUNTER → 2020-08-27 | Outpatient (CLI) | payer MEDICARE, OTHER ==
[2020-08-27] VITALS (7 sets, daily range): BP systolic 85–105; BP diastolic 44–53
[~2020-08-27] MED LIST changes: -CYANOCOBALAMIN (B-12) 1000 MCG/1 ML VIAL IM ONE; -CYANOCOBALAMIN (B-12) 1000 MCG/1 ML VIAL ONE
[2020-08-27 11:49] LABS: Basophils # (auto) 0 10 ^3/uL (0-0.2); Eosinophils # (auto) 0 10 ^3/uL (0-0.8); Hemoglobin 10.7 g/dL (13.5-17.5); Lymphocytes # (auto) 0.5 10 ^3/uL (0.4-5.4); Mean Corpuscular Hemoglobin 30.4 pg (28.0-32.0); Mean Corpuscular Hgb Conc. 30.9 g/dL (32.0-36.0); Monocytes # (auto) 0.5 10 ^3/uL (0-1.3); Red Blood Cells 3.53 10^6/uL (4.5-5.90)
[2020-08-27 11:51] LABS: Basophils % (auto) 0.5 % (0.0-2.0); Eosinophils % (auto) 0.2 % (0.0-7.0); Hematocrit 34.7 % (41.0-53.0); Lymphocytes % (auto) 9.7 % (10.0-50.0); Mean Corpuscular Volume 98.4 fL (80.0-100.0); Monocytes % (auto) 9.8 % (0.0-12.0); Neutrophils % (auto) 79.8 % (37.0-80.0); Nucleated Red Blood Cells % 0.3 %; Platelet Count (auto) 70 10^3/uL (140-450); Red Cell Distribution Width 18.9 % (11.8-14.3)
== END | disposition home or self-care (01) ==
LOC: CHF HDHVI 10:01
PROVIDERS: ATTEND Internal Medicine Cardiovascular Disease
DX: I13.2 Hypertensive heart and chronic kidney disease with heart failure and with stage 5 chronic kidney disease, or end stage renal disease (principal); E11.22 Type 2 diabetes mellitus with diabetic chronic kidney disease; N18.6 End stage renal disease; I50.23 Acute on chronic systolic (congestive) heart failure; D64.9 Anemia, unspecified; R53.83 Other fatigue; R05 Cough; R06.02 Shortness of breath; I25.10 Atherosclerotic heart disease of native coronary artery without angina pectoris; I25.2 Old myocardial infarction; I42.8 Other cardiomyopathies; I45.10 Unspecified right bundle-branch block; E78.5 Hyperlipidemia, unspecified; E78.00 Pure hypercholesterolemia, unspecified; E11.21 Type 2 diabetes mellitus with diabetic nephropathy; E43 Unspecified severe protein-calorie malnutrition; E11.40 Type 2 diabetes mellitus with diabetic neuropathy, unspecified; Z79.01 Long term (current) use of anticoagulants; Z95.5 Presence of coronary angioplasty implant and graft; Z99.2 Dependence on renal dialysis; Z79.4 Long term (current) use of insulin; Z79.82 Long term (current) use of aspirin; Z79.899 Other long term (current) drug therapy
CPT/HCPCS: 36415; 83880; 85025; 96365; 96366; G0463; J1250

== ENCOUNTER → 2020-08-28 | Outpatient (CLI) | payer MEDICARE, OTHER ==
[~2020-08-28] MED LIST changes: +BUMETANIDE 1mg/4ml VIAL (0.25mg/ml) ONE; +BUMETANIDE 2.5mg/10ml (0.25 mg/ml) INJ IV ONE; +BUMETANIDE INJECTION 10 ML ONE; -DOBUTamine 1000MCG/ML 250 ML IV ONE; +POTASSIUM CHL 10 Meq TABLET PO ONE
--- NOTE | 2020-08-28 10:46 | NUR ---
PT TO CHF FROM BACK OFFICE PT TO CHF CLINIC FROM BACK OFFICE WITH ORDERS FOR TREATMENT AND EVALUATION. PATIENT ALERT AND AWAKE WITH EVEN AND UNLABORED RESPIRATIONS. PT C/O SWELLING IN LEGS AND SOB. VSS. WILL CARRY OUT MD ORDERS.
[2020-08-28 11:35] VITALS: BP 98/56
--- NOTE | 2020-08-28 11:35 | NUR ---
CHF CLINIC Discharge Instructions See e-MAR for any mediations given with this visit. Patient remains alert and awake with even and unlabored respirations. Patient education given on disease process. Patient verbalized understanding. Previous labs reviewed. pt scheduled for PICC insertion on Monday 11:30 am at [facility]. Pt's daughter given instructions regarding appt and where to go. Pt/ family verbalized understanding. Patient discharged in stable condition with after care instructions and follow up appointment. NOTES BUMEX IVP ADMIN BY JOSE PIZARRO POTASSIUM PO ADMIN BY FABRICIO PIEDRA
== END | disposition home or self-care (01) ==
LOC: Rad HDHVI 10:43
PROVIDERS: ATTEND Internal Medicine Cardiovascular Disease
DX: I13.2 Hypertensive heart and chronic kidney disease with heart failure and with stage 5 chronic kidney disease, or end stage renal disease (principal); E11.22 Type 2 diabetes mellitus with diabetic chronic kidney disease; N18.6 End stage renal disease; I50.23 Acute on chronic systolic (congestive) heart failure; I25.10 Atherosclerotic heart disease of native coronary artery without angina pectoris; I25.2 Old myocardial infarction; I42.8 Other cardiomyopathies; I45.10 Unspecified right bundle-branch block; E43 Unspecified severe protein-calorie malnutrition; E78.5 Hyperlipidemia, unspecified; E78.00 Pure hypercholesterolemia, unspecified; E11.21 Type 2 diabetes mellitus with diabetic nephropathy; E11.65 Type 2 diabetes mellitus with hyperglycemia; Z95.1 Presence of aortocoronary bypass graft; Z79.01 Long term (current) use of anticoagulants; Z79.82 Long term (current) use of aspirin; Z79.4 Long term (current) use of insulin; Z99.2 Dependence on renal dialysis; Z79.899 Other long term (current) drug therapy; Z95.5 Presence of coronary angioplasty implant and graft
CPT/HCPCS: 96374; G0463

== ENCOUNTER 2020-08-31 07:33 | Inpatient (IN) | payer OTHER, MEDICARE ==
[~2020-08-31] VITALS: Ht 170.2 cm; Wt 73.5 kg
[~2020-08-31 07:33] MED LIST changes: -BUMETANIDE 1mg/4ml VIAL (0.25mg/ml) ONE; -BUMETANIDE 2.5mg/10ml (0.25 mg/ml) INJ IV ONE; -BUMETANIDE INJECTION 10 ML ONE; -POTASSIUM CHL 10 Meq TABLET PO ONE
[2020-08-31] MEDS ORDERED: DEXTROSE 50% SYRINGE 50 ML IV ONE (07:53)
[2020-08-31] MEDS ORDERED: DEXTROSE (50%) 50ML SYRG IV ONE (08:00)
[2020-08-31] MEDS ORDERED: DEXTROSE 10% 1,000 ML IV ONE ×3 (08:07→08:15)
[2020-08-31 10:19] LABS: Basophils # (auto) 0 10 ^3/uL (0-0.2); Basophils % (auto) 0.6 % (0.0-2.0); Mean Corpuscular Hemoglobin 30.7 pg (28.0-32.0); Monocytes # (auto) 0.5 10 ^3/uL (0-1.3); Neutrophils # (auto) 5.6 10 ^3/uL (1.6-8.6); Platelet Count (auto) 30 10^3/uL (140-450)
[2020-08-31 10:21] LABS: Eosinophils # (auto) 0 10 ^3/uL (0-0.8); Eosinophils % (auto) 0.6 % (0.0-7.0); Hematocrit 38.6 % (41.0-53.0); Hemoglobin 11.9 g/dL (13.5-17.5); Lymphocytes # (auto) 0.8 10 ^3/uL (0.4-5.4); Lymphocytes % (auto) 11.1 % (10.0-50.0); Mean Corpuscular Hgb Conc. 30.8 g/dL (32.0-36.0); Mean Corpuscular Volume 99.7 fL (80.0-100.0); Monocytes % (auto) 6.8 % (0.0-12.0); Neutrophils % (auto) 80.9 % (37.0-80.0); Nucleated Red Blood Cells % 0.9 %; Red Blood Cells 3.87 10^6/uL (4.5-5.90); Red Cell Distribution Width 19.8 % (11.8-14.3); White Blood Cell 6.9 10^3/uL (4.4-10.8)
[2020-08-31 10:28] LABS: INR 1.12 (0.9-1.15); Partial Thromboplastin Time 31.9 sec (23.0-31.2)
[2020-08-31 12:07] LABS: Albumin 2.8 g/dL (3.4-5.0); BUN/Creatinine Ratio 5.9; Bilirubin, Total 0.6 mg/dL (0.2-1.0); Calcium 8.5 mg/dL (8.5-10.1); Potassium 4.7 mmol/L (3.5-5.1); Total Protein 6.2 g/dL (6.4-8.2)
[2020-08-31] MEDS ORDERED: MORPHINE SULF INJ 2 MG/ML SYRINGE 1ML IV PRN (13:00)
[2020-08-31] MEDS ORDERED: DEXTROSE (50%) 50ML SYRG IV PRN (13:00)
[2020-08-31] MEDS ORDERED: NITROGLYCERIN 0.4 MG SL TAB SL PRN (13:00)
[2020-08-31] MEDS ORDERED: LIDOCAINE 1% (LOCAL ANESTH.) PF 5ml SDV ID ONE (14:30)
--- NOTE | 2020-08-31 14:30 | NUR ---
PICC line placement Patient educated on need for PICC line placement. All risks and benefits explained and all questions and concerns addressed prior to procedure. Noted past medical history and allergies with no contraindications. INR and Plt counts within acceptable range. 5 fr PICC line inserted via LEFT BRACHIAL vein using [employer]'s [employer] R[employer] US and Tip Location System. Sterile technique with maximum barrier precautions utilized. Blood return obtained from each of the two lumens and each flushed easily with NS using proper technique. PICC secured with Stat-lock; biodisc and occlusive dressing applied. Stat portable chest x-ray obtained for PICC tip placement. *Baseline Arm Circumference 27 cm Internal Length 46 cm External Length 0 cm PICC lot # [id number]
--- NOTE | 2020-08-31 15:00 | NUR ---
OK to use PICC line Xray completed. OK to use PICC line.
[2020-08-31] MEDS: InsuLIN REG 1unit/0.01ml Soln (100units/ml) SC SCH ×2 (17:00→22:00)
[2020-08-31] MEDS: ACCU-CHEK COMFORT CURVE STRIP VI SCH ×2 (17:04→22:28)
--- NOTE | 2020-08-31 19:40 | NUR ---
Opening shift note Received report from day shift RN who stated that patient had just been admitted. Patient is A&Ox4, respirations non-labored with occasional congested coughing. Discussed POC, patient medications, and answered questions. The patient requested a phone call to his which was done bedside. Safety precautions in place, bed in lowest locked position with 2 side rails up, advised patient to call for assistance, call light within reach. Will continue to monitor Q1hr and PRN.
[2020-08-31 21:52] VITALS: BP 145/68
[2020-08-31 22:00] VITALS: BP 98/51
[2020-08-31] MEDS: SODIUM CHLOR 0.9% PF (SALINE LOCK) 10ML VIAL/SYR IV SCH (22:28)
[2020-08-31 23:23] VITALS: BP 98/51
--- NOTE | 2020-09-01 02:35 | NUR ---
Patient assisted to BSC Patient returned to bed without c/o dizziness or s/s of distress. Patient tolerated activity well.
--- NOTE | 2020-09-01 03:30 | NUR ---
MRSA swab sent to lab
--- NOTE | 2020-09-01 03:45 | NUR ---
Patient assisted to BSC Returned to bed, alarm reset. Advised patient to call for assistance
--- NOTE | 2020-09-01 04:15 | NUR ---
Patient to C Small BM, returned to bed. Bed alarm reset. Patient tolerated well.
--- NOTE | 2020-09-01 04:30 | NUR ---
IV removal to LAC IV infiltrated, DC'd with clean sterile technique, catheter fully intact. Pressure dressing applied to site. Patient tolerated well.
[2020-09-01 05:00] VITALS: BP 94/52
[2020-09-01] MEDS: ACCU-CHEK COMFORT CURVE STRIP VI SCH ×4 (06:23→22:00)
[2020-09-01] MEDS: InsuLIN REG 1unit/0.01ml Soln (100units/ml) SC SCH ×4 (06:23→22:00)
--- NOTE | 2020-09-01 06:24 | NUR ---
Low Blood Glucose BG 51, patient sitting up A&Ox4 and asymptomatic. Patient given cranberry/orange juice, will continue to monitor.
--- NOTE | 2020-09-01 06:59 | NUR ---
Blood Glucose Reassessed BG 79
[2020-09-01] MEDS ORDERED: SODIUM CHL 0.9% 1000 ML BAG XX ONE (07:00)
--- NOTE | 2020-09-01 07:00 | NUR ---
Patient resting A&Ox4 without SOB or s/s of distress at this time.
[2020-09-01 07:04] LABS: Basophils # (auto) 0.1 10 ^3/uL (0-0.2); Basophils % (auto) 0.7 % (0.0-2.0); Eosinophils # (auto) 0.1 10 ^3/uL (0-0.8); Hemoglobin 11.2 g/dL (13.5-17.5); Lymphocytes # (auto) 0.9 10 ^3/uL (0.4-5.4); Red Blood Cells 3.62 10^6/uL (4.5-5.90); White Blood Cell 7.8 10^3/uL (4.4-10.8)
[2020-09-01 07:07] LABS: Eosinophils % (auto) 0.9 % (0.0-7.0); Hematocrit 35.4 % (41.0-53.0); Lymphocytes % (auto) 11.1 % (10.0-50.0); Mean Corpuscular Hgb Conc. 31.7 g/dL (32.0-36.0); Mean Corpuscular Volume 97.7 fL (80.0-100.0); Monocytes # (auto) 0.5 10 ^3/uL (0-1.3); Neutrophils # (auto) 6.2 10 ^3/uL (1.6-8.6); Neutrophils % (auto) 80.3 % (37.0-80.0); Nucleated Red Blood Cells % 0.7 %; Platelet Count (auto) 39 10^3/uL (140-450); Red Cell Distribution Width 19.8 % (11.8-14.3)
[2020-09-01 07:38] LABS: % Iron Saturation 22.1 % (20-55); BUN/Creatinine Ratio 6.4; Calcium 8.6 mg/dL (8.5-10.1); Potassium 4.3 mmol/L (3.5-5.1)
--- NOTE | 2020-09-01 07:44 | NUR ---
Opening Shift Note Assumed care of patient, awake and alertx3. Patient sitting on bedside commode no c/o pain and no s/s of distress/sob noted/stated. Instructed on POC and to call for assist PRN. Call light within reach. Will continue to monitor for changes Q1hr and PRN.
[2020-09-01 08:00] VITALS: BP 99/58
--- NOTE | 2020-09-01 08:48 | NUR ---
ABDIK Updated patients , Amirah after password was provided.
[2020-09-01] MEDS: SODIUM CHLOR 0.9% PF (SALINE LOCK) 10ML VIAL/SYR IV SCH ×2 (10:00→22:00)
[2020-09-01] MEDS: CLOPIDOGREL BISULFATE 75 MG TAB PO SCH (10:00)
[2020-09-01 12:00] VITALS: BP 89/51
[2020-09-01] MEDS ORDERED: ALBUMIN 25% 100 ML IV ONE ×2 (14:45→17:00)
--- NOTE | 2020-09-01 19:29 | NUR ---
Closing note Patient is comfortably resting in bed, no s/s of distress/sob noted/stated. Bed alarm on and bed at lowest locked position, call light within reach. care endorsed to NOC RN.
--- NOTE | 2020-09-01 19:30 | NUR ---
Patient ambulated to the restroom Found patient in the restroom with the BSC which had been utilized as a walker. Patient was unable to stand up without assistance. Cleaned patient and assisted into a wheelchair. Patient had a large BM in the toilet and was transferred back into bed without incident. Noted that patient had removed his PICC line and placed it underneath his food tray.
--- NOTE | 2020-09-01 21:48 | NUR ---
Patient low blood pressure 82/45. Patient A&O to self/, 99% SpO2, NE 86, RR 18. Will notify Dr. Vazquez.
[2020-09-01 22:00] VITALS: BP 82/45
--- NOTE | 2020-09-01 22:04 | NUR ---
Called Dr. Vazquez[facility] Spoke to Tasha. Relayed patients information and low BP.
--- NOTE | 2020-09-01 22:29 | NUR ---
Patients BP 89/50. HR 70, 99% SpO2, RR 18, Patient A&Ox3 and asymptomatic at this time. Will continue to monitor.
--- NOTE | 2020-09-02 04:00 | NUR ---
IV insertion IV access obtained, via clean sterile technique by inserting 22 gauge catheter at left wrist after 1 attempt. IV secured properly. No trauma to site. Patient tolerated well.
--- NOTE | 2020-09-02 04:08 | NUR ---
Dr Vazquez returned call Orders: 25%, 200cc Albumin. Orders placed
[2020-09-02] MEDS ORDERED: ALBUMIN 25% 100 ML IV ONE ×2 (04:30→04:45)
[2020-09-02 05:00] VITALS: BP 93/57
--- NOTE | 2020-09-02 05:03 | NUR ---
Blood Pressure 93/57, patient resting without s/s of distress at this time. Will continue to monitor.
[2020-09-02] MEDS: InsuLIN REG 1unit/0.01ml Soln (100units/ml) SC SCH ×4 (06:43→22:00)
[2020-09-02] MEDS: ACCU-CHEK COMFORT CURVE STRIP VI SCH ×3 (06:43→17:48)
--- NOTE | 2020-09-02 07:20 | NUR ---
Closing shift note Patient resting, respirations even and non-labored with no s/s of distress at this time. Endorsed care to day shift RN, January.
[2020-09-02 09:00] VITALS: BP 87/54
[2020-09-02] MEDS: DIGOXIN 0.125 MG TAB PO SCH (11:46)
[2020-09-02] MEDS: SODIUM CHLOR 0.9% PF (SALINE LOCK) 10ML VIAL/SYR IV SCH ×2 (11:46→23:59)
[2020-09-02] MEDS: CLOPIDOGREL BISULFATE 75 MG TAB PO SCH (11:47)
[2020-09-02] MEDS: MIDODRINE HCL 10 MG TAB PO SCH ×2 (11:47→18:03)
[2020-09-02 13:00] VITALS: BP 82/46
--- NOTE | 2020-09-02 13:58 | NUR ---
Nutrition Assessment Note please see attached link for complete assessment Est energy needs BW 77 [id number] kcal (30-33kcal/kg BW) Est protein needs: 92-107 g (1.2-1.4 g/kg BW r/t HD) Will monitor and reassess prn. Addendum: 09/02/20 at [address] Amended: Links added.
[2020-09-02 16:40] VITALS: BP 86/59
[2020-09-02 22:00] VITALS: BP 90/50
[2020-09-03 05:00] VITALS: BP 104/50
[2020-09-03] MEDS: InsuLIN REG 1unit/0.01ml Soln (100units/ml) SC SCH ×4 (06:18→21:29)
[2020-09-03] MEDS: MIDODRINE HCL 10 MG TAB PO SCH ×3 (06:20→17:41)
[2020-09-03] MEDS: ACCU-CHEK COMFORT CURVE STRIP VI SCH ×5 (06:20→21:29)
[2020-09-03 09:00] VITALS: BP 92/54
[2020-09-03] MEDS: CLOPIDOGREL BISULFATE 75 MG TAB PO SCH ×2 (10:00→10:26)
[2020-09-03] MEDS: SODIUM CHLOR 0.9% PF (SALINE LOCK) 10ML VIAL/SYR IV SCH ×2 (10:26→21:24)
[2020-09-03 13:00] VITALS: BP 90/53
[2020-09-03 16:49] VITALS: BP 93/53
--- NOTE | 2020-09-03 17:53 | NUR ---
S/P fall Patient had an unwitnessed fall. He was found lying on the ground by staff. Vitals post fall: BP 107/62 HR 86 O2 sat 69 on room air. Patient was assisted back to bed and assessed for injuries; no bleeding, skin is intact. Patient is confused but oriented to self and place. He stated that he was trying to reach for the bedside commode, call light wasn't utilized. Doctor George notified of fall.
--- NOTE | 2020-09-03 18:45 | NUR ---
Patient room assignment changed Patient was moved to room 274A with a sitter.
--- NOTE | 2020-09-03 19:00 | NUR ---
Opening Shift Note Assumed care of patient, awake and alert x2, patient is s/p fall and recently changed rooms, patient sitting comfortably with no pain with sitter at bedside. No S/S of distress/SOB or pain. Instructed on POC and to call for assist PRN, will continue to monitor for changes Q1hr and PRN. Patient in the lowest possible position with call light within reach. Will continue to monitor.
[2020-09-03] MEDS ORDERED: LEVALBUTEROL HCL 1.25 MG/3 ML NEB NEB ONE (19:30)
--- NOTE | 2020-09-03 19:50 | NUR ---
Family called Called and spoke to Amirah and granddaughter Rhonda. Gave update on patients condition and change of room. Answered all questions.
[2020-09-03 20:00] VITALS: BP 93/52
--- NOTE | 2020-09-03 20:00 | NUR ---
Red socks placed on patient, patient with sitter for safety.
[2020-09-03] MEDS: LEVALBUTEROL HCL 1.25 MG/3 ML NEB NEB SCH (21:45)
[2020-09-03 22:00] VITALS: BP 93/52
[2020-09-04] VITALS (7 sets, daily range): BP systolic 91–101; BP diastolic 47–62
[2020-09-04] MEDS: MIDODRINE HCL 10 MG TAB PO SCH ×3 (06:06→17:19)
[2020-09-04] MEDS: InsuLIN REG 1unit/0.01ml Soln (100units/ml) SC SCH ×4 (06:06→21:57)
[2020-09-04] MEDS: ACCU-CHEK COMFORT CURVE STRIP VI SCH ×4 (06:06→21:57)
[2020-09-04] MEDS: LEVALBUTEROL HCL 1.25 MG/3 ML NEB NEB SCH ×3 (06:14→22:27)
--- NOTE | 2020-09-04 07:30 | NUR ---
Opening Note Assumed pt care from RUTHIE RN. Pt is a/ox3-4, mild periods of confusion noted. Sitter is present in room. Pt is currently laying in bed with no complaints at this time. Possible dialysis tx today. Safety measures maintained with call light within reach, bed in lowest position and side rails up. Will continue to monitor for changes.
[2020-09-04] MEDS: SODIUM CHLOR 0.9% PF (SALINE LOCK) 10ML VIAL/SYR IV SCH ×2 (09:00→21:57)
[2020-09-04] MEDS: CLOPIDOGREL BISULFATE 75 MG TAB PO SCH (09:16)
[2020-09-04 09:50] LABS: BUN/Creatinine Ratio 6.6; Calcium 9.2 mg/dL (8.5-10.1); Potassium 4.4 mmol/L (3.5-5.1)
[2020-09-04] MEDS: DIGOXIN 0.125 MG TAB PO SCH (10:00)
--- NOTE | 2020-09-04 17:10 | NUR ---
colorer at Bedside RN at bedside for treatment.
--- NOTE | 2020-09-04 19:30 | NUR ---
Opening Shift Note Assumed care of patient, awake and alert. No S/S of distress/SOB or pain. Sitter at bedside. Instructed on POC and to call for assist PRN, will continue to monitor for changes Q1hr and PRN.
--- NOTE | 2020-09-04 22:36 | NUR ---
at bedside for med eran shah.
[2020-09-05 05:00] VITALS: BP 94/51
[2020-09-05] MEDS: MIDODRINE HCL 10 MG TAB PO SCH ×2 (06:05→11:23)
[2020-09-05] MEDS: ACCU-CHEK COMFORT CURVE STRIP VI SCH ×2 (06:06→11:17)
[2020-09-05] MEDS: InsuLIN REG 1unit/0.01ml Soln (100units/ml) SC SCH ×2 (06:06→11:30)
--- NOTE | 2020-09-05 07:30 | NUR ---
Opening Note Assumed pt care from NOC RN. Pt is a/ox3-4, mild periods of confusion noted. Pt is currently sitting upright in bed on 2 L via NC with no s/s of distress. Sitter is present in room for safety. Discussed POC with pt, pt verbalized understanding. Safety measures maintained with call light within reach, bed in lowest position and side rails up. Will continue to monitor for changes.
[2020-09-05] MEDS: SODIUM CHLOR 0.9% PF (SALINE LOCK) 10ML VIAL/SYR IV SCH (08:38)
[2020-09-05] MEDS: CLOPIDOGREL BISULFATE 75 MG TAB PO SCH (08:38)
[2020-09-05 08:58] VITALS: BP 91/49
--- NOTE | 2020-09-05 11:01 | NUR ---
Dr Vazquez at Bedside MD to see pt. Per MD, plans to d/c pt later today. MD requests that pt ambulate more before d/c. Will implement and continue to monitor. Provided pt with walker and assisted pt ambulation. Will ambulate pt around unit after lunch per pt's request.
[2020-09-05 12:42] VITALS: BP 92/50
[2020-09-05 13:10] VITALS: BP 92/50
--- NOTE | 2020-09-05 13:52 | NUR ---
IV D/C'ed IV to pt's L FA d/c'ed. Catheter was removed fully intact. Site is asymptomatic. Pressure dressing applied to site.
--- NOTE | 2020-09-05 14:38 | NUR ---
Pt D/C'ed off Unit Pt wheeled off unit via wheelchair. Pt is a/ox4 with no s/s of distress. Pt provided all education material, all questions were answered and pt informed of continued medications. Pt aware of need to schedule an appointment with MD. Information provided to pt's and daughter in lobby.
== END 2020-09-05 14:39 | disposition home or self-care (01) | DRG 637 ==
LOC: EDBD 07:33 → ER 07:33 → OVERFLOW 07:34 → WEST WING 18:19
PROVIDERS: ADMIT Internal Medicine Cardiovascular Disease; ATTEND Internal Medicine Cardiovascular Disease
PROC: 5A1D70Z Performance of Urinary Filtration, Intermittent, Less than 6 Hours Per Day (ICD-10-PCS; 2020-09-02)
PROC: 5A1D70Z Performance of Urinary Filtration, Intermittent, Less than 6 Hours Per Day (ICD-10-PCS; principal; 2020-09-04)
DX: E11.649 Type 2 diabetes mellitus with hypoglycemia without coma (principal); I50.21 Acute systolic (congestive) heart failure; J18.9 Pneumonia, unspecified organism; G93.41 Metabolic encephalopathy; N18.6 End stage renal disease; D64.9 Anemia, unspecified; I25.5 Ischemic cardiomyopathy; E11.22 Type 2 diabetes mellitus with diabetic chronic kidney disease; E11.21 Type 2 diabetes mellitus with diabetic nephropathy; Z99.2 Dependence on renal dialysis; E11.40 Type 2 diabetes mellitus with diabetic neuropathy, unspecified; I25.10 Atherosclerotic heart disease of native coronary artery without angina pectoris; Z95.810 Presence of automatic (implantable) cardiac defibrillator; Z82.49 Family history of ischemic heart disease and other diseases of the circulatory system; Z79.899 Other long term (current) drug therapy; Z79.891 Long term (current) use of opiate analgesic; Z83.3 Family history of diabetes mellitus; Z82.3 Family history of stroke
CPT/HCPCS: 36415; 71045; 80048; 80053; 82728; 82962; 83036; 83540; 83550; 83880; 84484; 85025; 85610; 85730; 87081; 90935; 93005; 94640; G0378; J1642; J1815; P9047

== ENCOUNTER → 2020-09-08 | Outpatient (CLI) | payer MEDICARE, OTHER ==
[~2020-09-08] MED LIST changes: +DOBUTamine 1000MCG/ML 250 ML IV ONE
--- NOTE | 2020-09-08 11:00 | NUR ---
PT. TO CHF CLINIC VIA WC WITH CAREGIVER, AFTER HAVING AICD INTERROGATED BY [employer]. PT. WAS RECENTLY HOSPITALIZED AT [facility] FROM 09/01- 09/05, FOR HYPOGLYCEMIA AND CHF. WT. DOWN 16 LBS. SINCE LAST CHF VISIT ON 08/27. PT. APPARENTLY PULLED HIS PICC LINE OUT DURING HOSP. AND DID NOT GET A NEW INSERTION. PT. WITH HX OF POOR IV ACCESS AND APPEARS VERY DRY WITH LOOSE SKIN TURGOR.ORDERS FOR DOBUTAMINE DRIP RECEIVED AND CARRIED OUT.
--- NOTE | 2020-09-08 11:30 | NUR ---
UNABLE TO OBTAIN IV ACCESS AFTER MULTIPLE ATTEMPTS. CALL TO DR. NIELSON WITH CANCELLATION OF DOBUTREX ORDERS RECEIVED. LAB ORDERS RECEIVED. CALL TO [facility] PICC RN FOR SCHEDULING NEW INSERTION.
--- NOTE | 2020-09-08 11:45 | NUR ---
LABS DRAWN AND SENT.
[2020-09-08 12:00] VITALS: BP 108/56
--- NOTE | 2020-09-08 12:00 | NUR ---
Discharge Instructions See e-MAR for any mediations given with this visit. Patient education given on disease process. Patient verbalized understanding. Previous labs reviewed. Patient discharged in stable condition with after care instructions and follow up appointment.
[2020-09-08 13:40] LABS: Albumin 3.3 g/dL (3.4-5.0); Calcium 8.9 mg/dL (8.5-10.1); Magnesium 2.9 mg/dL (1.6-2.6); Potassium 4.1 mmol/L (3.5-5.1)
[2020-09-08 13:44] LABS: BUN/Creatinine Ratio 4.7; Bilirubin, Total 1.5 mg/dL (0.2-1.0); Total Protein 6.3 g/dL (6.4-8.2)
== END | disposition home or self-care (01) ==
LOC: CHF HDHVI 10:41
PROVIDERS: ATTEND Internal Medicine Cardiovascular Disease
DX: I50.23 Acute on chronic systolic (congestive) heart failure (principal)
CPT/HCPCS: 36415; 80053; 83735; 83880; G0463; J1250

== ENCOUNTER → 2020-09-14 | Outpatient (CLI) | payer MEDICARE, OTHER ==
[~2020-09-14] MED LIST changes: -DOBUTamine 1000MCG/ML 250 ML IV ONE
[2020-09-14 10:29] LABS: Basophils # (auto) 0 10 ^3/uL (0-0.2); Eosinophils # (auto) 0 10 ^3/uL (0-0.8); Lymphocytes # (auto) 0.7 10 ^3/uL (0.4-5.4); Platelet Count (auto) 105 10^3/uL (140-450)
[2020-09-14 10:30] LABS: Basophils % (auto) 0.3 % (0.0-2.0); Hematocrit 41.4 % (41.0-53.0); Hemoglobin 12.6 g/dL (13.5-17.5); Lymphocytes % (auto) 5.1 % (10.0-50.0); Mean Corpuscular Hemoglobin 30.2 pg (28.0-32.0); Mean Corpuscular Hgb Conc. 30.4 g/dL (32.0-36.0); Mean Corpuscular Volume 99.1 fL (80.0-100.0); Monocytes # (auto) 0.6 10 ^3/uL (0-1.3); Monocytes % (auto) 5.1 % (0.0-12.0); Neutrophils # (auto) 11.3 10 ^3/uL (1.6-8.6); Neutrophils % (auto) 89.5 % (37.0-80.0); Red Blood Cells 4.18 10^6/uL (4.5-5.90); White Blood Cell 12.7 10^3/uL (4.4-10.8)
[2020-09-14 10:33] LABS: Red Cell Distribution Width 20.3 % (11.8-14.3)
[2020-09-14 10:43] LABS: INR 1.13 (0.9-1.15)
[2020-09-14 11:05] LABS: BUN/Creatinine Ratio 5.9; Calcium 9.9 mg/dL (8.5-10.1); Magnesium 2.5 mg/dL (1.6-2.6); Potassium 3.9 mmol/L (3.5-5.1)
== END | disposition home or self-care (01) ==
LOC: CHF HDHVI 09:21
PROVIDERS: ATTEND Internal Medicine Cardiovascular Disease
DX: I50.23 Acute on chronic systolic (congestive) heart failure (principal); D64.9 Anemia, unspecified
CPT/HCPCS: 36415; 80048; 83735; 85025; 85610; 85730

== ENCOUNTER → 2020-09-14 | Outpatient (CLI) | payer MEDICARE, OTHER ==
[~2020-09-14] MED LIST changes: +LIDOCAINE 1% (LOCAL ANESTH.) PF 5ml SDV ID ONE; +SODIUM CHLOR 0.9% PF (SALINE LOCK) 10ML VIAL/SYR IV SCH
--- NOTE | 2020-09-14 11:47 | NUR ---
PICC line placement Patient educated on need for PICC line placement. All risks and benefits explained and all questions and concerns addressed prior to procedure.Noted past medical history and allergies with no contraindications. INR and Plt counts within acceptable range. 5 fr PICC line inserted via LEFT BASILIC vein using [employer]'s [employer] US and Tip Location System. Sterile technique with maximum barrier precautions utilized. Blood return obtained from each of THE SINGLE lumens and each flushed easily with NS using proper technique. PICC secured with Stat-lock; biodisc and occlusive dressing applied. Tip location verified by using [employer] technology. May use PICC line now. Called and spoke with Iza gunn daughter to let her know patient is ready for scrap picker at this time. *Baseline Arm Circumference 26 CM INTERNAL LENGTH 46 CM EXTERNAL LENGTH 0 CM PICC lot # [id number]
== END | disposition home or self-care (01) ==
LOC: XYW 09:51
PROVIDERS: ATTEND Internal Medicine Cardiovascular Disease
DX: Z45.2 Encounter for adjustment and management of vascular access device (principal); I50.9 Heart failure, unspecified; Z85.46 Personal history of malignant neoplasm of prostate; Z79.899 Other long term (current) drug therapy; Z98.890 Other specified postprocedural states
CPT/HCPCS: 36569; C1751; J7050